=== PATIENT | female | born 1990 | race Caucasian/White ===

== ENCOUNTER 2021-08-01 08:37 | Emergency (ER) | payer MEDICAID, SELFPAY ==
[2021-08-01 08:46] VITALS: BP 115/70; PULSE 78; RESP 16; TEMP 36.4; O2SAT 97; BMI 29.6
--- NOTE | 2021-08-01 09:08 | ED_ITS ---
HPI - URI/Sore Throat General Chief Complaint: Upper Respiratory Symptoms Stated Complaint: flu like symptoms Time Seen by Provider: 08/01/21 09:00 Source: patient Mode of arrival: ambulatory Limitations: no limitations History of Present Illness MD elicited complaint: cough, sore throat and rhinorrhea Onset (ago): day(s) (3) Consistency: constant Severity: mild Description of mucous: clear Able to tolerate fluids by mouth: Yes Exacerbating factors: swallowing Relieving factors: nothing Associated symptoms: rhinorrhea, sore throat, cough and other (itchy eye) Treatments prior to arrival: none Related Data Previous Rx's Medication Instructions Recorded amoxicillin 500 mg capsule 500 mg PO BID 10 Days #20 cap 08/01/21 cetirizine 10 mg capsule 10 mg PO DAILY PRN #30 cap 08/01/21 Allergies Allergy/AdvReac Type Severity Reaction Status Date / Time No Known Allergies Allergy Verified 08/01/21 08:46 [No Known Allergies*] Review of Systems Review of Systems: Constitutional : No Fever, No Chills ENT/Mouth : pos sore throat, pos Rhinorrhea Eyes: No Eye Pain, No Swelling, No Redness, pos itchy eyes Cardiovascular : No Chest Pain, No SOB Respiratory : No Cough, No Sputum, No Wheezing Gastrointestinal : No Nausea, No Vomiting, Genitourinary : No Dysuria, No Urinary Frequency, No Hematuria Neuro : No Dizziness, No Headache PMFSH Past Medical History Attestation statement: The following information was validated with the patient. Medical History No known health problems Social History Social History (Updated 08/01/21 @ 09:22 by Awilda Couch DO) Patient Tobacco Use Status: Current someday Tobacco user Advance Directives: No Patient : No Physical Exam Vital Signs: Vital Signs: Last Vital Signs Temp 97.5 F 08/01/21 08:46 Pulse 78 08/01/21 08:46 Resp 16 08/01/21 08:46 BP 115/70 08/01/21 08:46 Pulse Ox 97 08/01/21 08:46 Body Mass Index 29.6 Appearance: Alert. Oriented X3. No acute distress. Eyes: Pupils equal, round and reactive to light. bilateral watery itchy eyes ENT: mild generalized tonsil swelling no exudates uvula midline Neck: bilateral mild tender cervical LAD CVS: Normal heart rate and rhythm. Pulses normal. Respiratory: No respiratory distress. Breath sounds normal. Abdomen: Soft and nontender. Skin: Skin warm and dry. Normal skin color. Normal skin turgor. Extremities: No lower extremity edema. No calf ttp Neuro: Oriented X 3. No motor deficit. No sensory deficit. MDM - URI/Sore Throat MDM Narrative Medical decision making narrative: 31 yo female with no sig PMH here with 3 days of itchy eyes, scratchy throat, cough - throat appears like tonsillitis though could be allergies, will start on zyrtec and amoxicillin test for COVID Lab Data Labs: Lab Results 08/01/21 Range/Units 09:15 COVID-19 (CANDICE) Negative (Negative) COVID-19 Clin Com See Note Discharge Plan Discharge Clinical Impression: Allergic rhinitis Qualifiers: Allergic rhinitis trigger: unspecified Allergic rhinitis seasonality: unspecified Qualified Code(s): J30.9 - Allergic rhinitis, unspecified Acute tonsillitis Qualifiers: Pharyngitis/tonsillitis etiology: unspecified etiology Qualified Code(s): J03.90 - Acute tonsillitis, unspecified Patient Disposition: Home, Self-Care Instructions: Allergic Rhinitis (ED), Tonsillitis (ED), Allergies (ED) Additional Instructions: return to ED for any worsening symptoms or concerns NEGATIVE FOR COVID Prescriptions: New cetirizine 10 mg capsule 10 mg PO DAILY PRN (Reason: allergy symptoms) Qty: 30 RF: 2 amoxicillin 500 mg capsule 500 mg PO BID 10 Days Qty: 20 RF: 0 Referrals: [facility] [Primary Care Provider] - 2 days (if not better) Stand Alone Forms: Work/School Release Print Language: Bulgarian
[2021-08-01 09:36] LABS: COVID-19 Test Negative (Negative)
== END 2021-08-01 10:05 | disposition home or self-care (01) ==
PROVIDERS: Emergency Provider Emergency Medicine
DX: J30.9 Allergic rhinitis, unspecified (principal); J03.90 Acute tonsillitis, unspecified; R05.9 Cough, unspecified; F17.200 Nicotine dependence, unspecified, uncomplicated; Z20.822 Contact with and (suspected) exposure to COVID-19
CPT/HCPCS: 36415; 87635; 99283

== ENCOUNTER 2021-09-08 13:42 | Emergency (ER) | payer MEDICAID, SELFPAY ==
[2021-09-08 14:23] VITALS: BP 121/77; PULSE 112; RESP 18; TEMP 37.8; O2SAT 98; BMI 24.1
[2021-09-08 15:06] LABS: COVID-19 Test Negative (Negative)
--- NOTE | 2021-09-08 18:44 | ED.FEVER ---
HPI - Fever General Chief Complaint: Nausea/Vomiting/Diarrhea Stated Complaint: vomiting fever Time Seen by Provider: 09/08/21 16:15 Source: patient Mode of arrival: ambulatory Limitations: no limitations History of Present Illness HPI Narrative: 31 y/o female with no significant medical history presents to the ER for evaluation of a few days of subjective fevers, headaches, productive cough with increased phlegm, nausea and a couple episodes of vomiting. She symptoms are worse in the morning. She has some body aches and generally feels unwell. She is eating and drinking normally throughout the day in reports her nausea is only after she is coughing up some of the morning. She is fully vaccinated for COVID-19 and has no known sick contacts. She has no abdominal pain. She has not taken her temperature but feels like she has had a few days of low-grade fevers. Denies any dysuria but reports her urine has been dark. MD elicited complaint: fever, weakness and other (Cough headache) Onset (ago): day(s) (4) Exacerbating factors: in morning Relieving factors: nothing Associated symptoms: headache, nasal congestion, cough, nausea and vomiting Treatments prior to arrival fever: none Related Data Previous Rx's Medication Instructions Recorded amoxicillin 500 mg capsule 500 mg PO BID 10 Days #20 cap 08/01/21 cetirizine 10 mg capsule 10 mg PO DAILY PRN #30 cap 08/01/21 azithromycin 250 mg tablet See Rx Instructions .ROUTE 09/08/21 (Zithromax Z-Shin) .COMPLEX #6 tab ondansetron 4 mg disintegrating 4 mg PO Q8H PRN #5 tab 09/08/21 tablet prednisone 20 mg tablet 40 mg PO DAILY #10 tab 09/08/21 Allergies Allergy/AdvReac Type Severity Reaction Status Date / Time No Known Allergies Allergy Verified 08/01/21 08:46 [No Known Allergies*] Review of Systems Review of Systems: Constitutional: No Fever, No Chills ENT/Mouth: No sore throat, No Rhinorrhea, No Swallowing Difficulty Cardiovascular: No Chest Pain, No SOB, No Orthopnea, No Edema Respiratory: + Cough, + Sputum, No Wheezing, No dyspnea Gastrointestinal: + Nausea, + Vomiting, No Diarrhea, No abdominal Pain Genitourinary: No Dysuria, No Urinary Frequency, No Hematuria Musculoskeletal: No joint pain, No Myalgias Skin: No Skin Lesions, No rash Neuro: + Weakness, No Numbness, No Dizziness, + Headache Heme/Lymph: No Bruising, No Lymphadenopathy PMFSH Past Medical History Medical History No known health problems Social History Social History (Updated 08/01/21 @ 09:22 by Awilda Couch DO) Patient Tobacco Use Status: Current someday Tobacco user Advance Directives: No Advance Directives Information Provided: Yes Physical Exam Vital Signs: Vital Signs: Last Vital Signs Temp 99.8 F 09/08/21 18:48 Pulse 86 09/08/21 18:48 Resp 18 09/08/21 18:48 BP 137/76 09/08/21 18:48 Pulse Ox 98 09/08/21 18:48 BMI result Body Mass Index 24.1 Appearance: Alert. Oriented X3. No acute distress. Eyes: Pupils equal, round and reactive to light. ENT: Pharynx normal. Neck: Normal inspection. Neck supple. CVS: Normal heart rate and rhythm. Pulses normal. Respiratory: No respiratory distress. Breath sounds normal. Abdomen: Soft and nontender. +BS x4 Skin: Skin warm and dry. Normal skin color. Normal skin turgor. No rashes. Extremities: No lower extremity edema. Neuro: Oriented X 3. No motor deficit. No sensory deficit. Course Course Course Narrative: 31-year-old female presenting with multiple vague complaints. She has a low-grade fever with tachycardia on arrival. She appears well, nontoxic. She has acne for COVID-19. She did not get the flu shot this year. Her rapid COVID is negative. Her low-grade fever and tachycardia improved without intervention. Her urine is dark. Will send urinalysis, check basic lab workup and hydrate with IV fluids. Will send a viral PCR as well. Her symptoms seem to be viral in etiology. Reevaluation(s) Reevaluation #1: Lab workup is completely normal. Urinalysis showing blood but knows other signs of infection. Her viral PCR is negative. At this time she is stable for discharge home with supportive care and outpatient follow-up. MDM - Fever Lab Data Result diagrams: 09/08/21 19:12 09/08/21 19:12 Labs: Lab Results 09/08/21 09/08/21 09/08/21 Range/Units 14:47 18:38 18:38 WBC (4.8-10.8) X10*3/uL RBC (4.20-5.50) X10*6/uL Hgb (12.0-16.0) g/dl Hct (37.0-47.0) % MCV (80.0-98.0) fL MCH (27.0-33.0) pg MCHC (31.0-35.0) g/dl RDW (11.0-16.0) % Plt Count (160-400) X10*3/uL MPV (9.4-12.3) fL Immature Gran % (Auto) (0.0-0.4) % Neut % (Auto) (45-73) % Lymph % (Auto) (20-40) % [place] % (Auto) (2-11) % Eos % (Auto) (0-4) % Baso % (Auto) (0-2) % Lymph # (Auto) (1.2-4.9) X10*3/uL [place] # (Auto) (0.1-1.2) X10*3/uL Eos # (Auto) (0.0-0.4) X10*3/uL Baso # (Auto) (0.0-0.2) X10*3/uL Abs Immat Gran (auto) (0.00-0.03) X10*3/uL Absolute Neuts (auto) (2.0-8.3) x10*3/uL Absolute Nucleated RBC (0.0-0.012) X10*3/uL Nucleated RBC % (auto) (0.0-0.2) /100WBC Smear Tech's Comments Sodium (135-145) mmol/L Potassium (3.3-5.1) mmol/L Chloride (96-108) mmol/L Carbon Dioxide (22-29) mmol/L Anion Gap (12-20) BUN (9-16) mg/dL Creatinine (0.5-1.4) mg/dL Estim Creat Clear Calc Estimated GFR Random Glucose (60-115) mg/dL Calcium (8.4-10.2) mg/dL Magnesium (1.6-2.6) mg/dL Total Bilirubin (0.0-1.0) mg/dL Direct Bilirubin (0.0-0.5) mg/dL AST (5-31) U/L ALT (0-31) U/L Alkaline Phosphatase (39-117) U/L Total Protein (6.5-8.0) g/dL Albumin (3.5-5.0) g/dL Urine Color YELLOW Urine Appearance HAZY Urine pH 5.5 (5.0-8.0) Ur Specific Ward >= 1.030 H (1.005-1.025) Urine Protein 3+ H (NEG-TRACE) MG/DL Urine Glucose (UA) NEG (NEG) MG/DL Urine Ketones 5 (NEG) MG/DL Urine Blood 3+ H (NEG) Urine Nitrite NEG (NEG) Ur Leukocyte Esterase NEG (NEG) Urine RBC 15-29 H (0) /HPF Urine WBC 0 (0-4) /HPF Ur Squamous Epith Cells 1+ /LPF Urine Bacteria 1+ /LPF Urine Test NEGATIVE (NEGATIVE) COVID-19 (CANDICE) Negative (Negative) COVID-19 Clin Com See Note Influenza Type A (PCR) (Negative) Influenza Type B (PCR) (Negative) RSV RNA Qual (PCR) (Negative) SARS-CoV-2 RNA (RT-PCR) (Negative) 09/08/21 09/08/21 09/08/21 Range/Units 19:12 19:12 19:12 WBC 8.8 (4.8-10.8) X10*3/uL RBC 4.68 (4.20-5.50) X10*6/uL Hgb 14.2 (12.0-16.0) g/dl Hct 43.6 (37.0-47.0) % MCV 93.2 (80.0-98.0) fL MCH 30.3 (27.0-33.0) pg MCHC 32.6 (31.0-35.0) g/dl RDW 13.3 (11.0-16.0) % Plt Count 252 (160-400) X10*3/uL MPV 10.4 (9.4-12.3) fL Immature Gran % (Auto) 0.5 H (0.0-0.4) % Neut % (Auto) 58.3 (45-73) % Lymph % (Auto) 21.5 (20-40) % [place] % (Auto) 18.9 H (2-11) % Eos % (Auto) 0.6 (0-4) % Baso % (Auto) 0.2 (0-2) % Lymph # (Auto) 1.9 (1.2-4.9) X10*3/uL [place] # (Auto) 1.7 H (0.1-1.2) X10*3/uL Eos # (Auto) 0.1 (0.0-0.4) X10*3/uL Baso # (Auto) 0.0 (0.0-0.2) X10*3/uL Abs Immat Gran (auto) 0.04 H (0.00-0.03) X10*3/uL Absolute Neuts (auto) 5.1 (2.0-8.3) x10*3/uL Absolute Nucleated RBC 0.000 (0.0-0.012) X10*3/uL Nucleated RBC % (auto) 0.0 (0.0-0.2) /100WBC Smear Tech's Comments VERIFIED Sodium 138 (135-145) mmol/L Potassium 4.1 (3.3-5.1) mmol/L Chloride 105 (96-108) mmol/L Carbon Dioxide 25 (22-29) mmol/L Anion Gap 12 (12-20) BUN 16 (9-16) mg/dL Creatinine 0.83 (0.5-1.4) mg/dL Estim Creat Clear Calc 78.4 Estimated GFR > 60 Random Glucose 88 (60-115) mg/dL Calcium 9.5 (8.4-10.2) mg/dL Magnesium 2.0 (1.6-2.6) mg/dL Total Bilirubin 0.2 (0.0-1.0) mg/dL Direct Bilirubin < 0.2 (0.0-0.5) mg/dL AST 19 (5-31) U/L ALT 13 (0-31) U/L Alkaline Phosphatase 54 (39-117) U/L Total Protein 7.7 (6.5-8.0) g/dL Albumin 4.0 (3.5-5.0) g/dL Urine Color Urine Appearance Urine pH (5.0-8.0) Ur Specific Ward (1.005-1.025) Urine Protein (NEG-TRACE) MG/DL Urine Glucose (UA) (NEG) MG/DL Urine Ketones (NEG) MG/DL Urine Blood (NEG) Urine Nitrite (NEG) Ur Leukocyte Esterase (NEG) Urine RBC (0) /HPF Urine WBC (0-4) /HPF Ur Squamous Epith Cells /LPF Urine Bacteria /LPF Urine Test (NEGATIVE) COVID-19 (CANDICE) (Negative) COVID-19 Clin Com Influenza Type A (PCR) NEGATIVE (Negative) Influenza Type B (PCR) NEGATIVE (Negative) RSV RNA Qual (PCR) NEGATIVE (Negative) SARS-CoV-2 RNA (RT-PCR) NEGATIVE (Negative) Discharge Plan Discharge Clinical Impression: Bronchitis Patient Disposition: Home, Self-Care Instructions: Acute Bronchitis (ED) Additional Instructions: You were negative for COVID-19, influenza and RSV. Your lab workup was normal. Your urine test did not show any signs of infection. Your being treated for acute bronchitis, take all the prescriptions as directed. Increase your oral hydration and rest. Follow-up with your doctor as needed If you develop new or worsening symptoms call 911 or come back to the ER for further evaluation. Prescriptions: New azithromycin [Zithromax Z-Sihn] 250 mg tablet See Rx Instructions .ROUTE .COMPLEX Qty: 6 RF: 0 prednisone 20 mg tablet 40 mg PO DAILY Qty: 10 RF: 0 ondansetron 4 mg tablet,disintegrating 4 mg PO Q8H PRN (Reason: nausea and vomiting) Qty: 5 RF: 0 No Action cetirizine 10 mg capsule 10 mg PO DAILY PRN (Reason: allergy symptoms) Qty: 30 RF: 2 amoxicillin 500 mg capsule 500 mg PO BID 10 Days Qty: 20 RF: 0 Interventions: ED Discharge Assessment Last Done: 09/08/21 20:37
[2021-09-08 18:45] LABS: Appearance Urine HAZY; Color Urine YELLOW; Glucose Urine UA NEG (NEG); Leukocyte Esterase Urine NEG (NEG); Nitrite Urine NEG (NEG); PH 5.5 (5.0-8.0); Specific Gravity - Urine >= 1.030 (1.005-1.025); UACC Culture Trigger NO; Urine Blood 3+ (NEG); Urine Ketones 5 MG/DL (NEG); Urine Protein 3+ MG/DL (NEG-TRACE)
[2021-09-08 18:47] LABS: UPreg QC Valid YES; Urine Pregnancy NEGATIVE (NEGATIVE)
[2021-09-08 18:48] VITALS: BP 137/76; PULSE 86; RESP 18; TEMP 37.7; O2SAT 98
[2021-09-08 18:52] LABS: Bacteria Urine 1+ /LPF; Squamous Epithelial Cell Urine 1+ /LPF; WBC Urine 0 /HPF (0-4)
[2021-09-08] MEDS: 0.9 % Sodium Chloride 1,000 ML 999 ML IVCONT (19:15)
[2021-09-08 19:17] LABS: Basophils Percent Auto 0.2 % (0-2); Eosinophils Absolute Auto 0.1 X10*3/uL (0.0-0.4); Eosinophils Percent Auto 0.6 % (0-4); Hematocrit 43.6 % (37.0-47.0); Hemoglobin 14.2 g/dl (12.0-16.0); Imm Gran Abs Auto 0.04 X10*3/uL (0.00-0.03); Imm Gran Pct Auto 0.5 % (0.0-0.4); Lymphocytes Absolute Auto 1.9 X10*3/uL (1.2-4.9); Lymphocytes Percent Auto 21.5 % (20-40); MANUAL DIFF FLAG SCAN; Mean Corpuscular HGB Conc 32.6 g/dl (31.0-35.0); Mean Corpuscular Hemoglobin 30.3 pg (27.0-33.0); Mean Corpuscular Volume 93.2 fL (80.0-98.0); Mean Platelet Volume 10.4 fL (9.4-12.3); Monocytes Absolute Auto 1.7 X10*3/uL (0.1-1.2); Monocytes Percent Auto 18.9 % (2-11); Neutrophils Absolute Auto 5.1 x10*3/uL (2.0-8.3); Neutrophils Percent Auto 58.3 % (45-73); Platelet Count 252 X10*3/uL (160-400); Red Blood Count 4.68 X10*6/uL (4.20-5.50); Red Cell Distribution Width 13.3 % (11.0-16.0); SCAN SMEAR FLAG 1; White Blood Count 8.8 X10*3/uL (4.8-10.8)
[2021-09-08 19:39] LABS: Alanine Aminotransferase 13 U/L (0-31); Alkaline Phosphatase 54 U/L (39-117); Anion Gap 12 (12-20); Aspartate Amino Transferase 19 U/L (5-31); Bilirubin Direct < 0.2 mg/dL (0.0-0.5); Bilirubin Total 0.2 mg/dL (0.0-1.0); Blood Urea Nitrogen 16 mg/dL (9-16); Calcium 9.5 mg/dL (8.4-10.2); Carbon Dioxide 25 mmol/L (22-29); Chloride 105 mmol/L (96-108); Creatinine Clr Calc Pharmacy 78.4; Estimated Glomerular Filt Rate > 60; Glucose Random 88 mg/dL (60-115); Potassium 4.1 mmol/L (3.3-5.1); Sodium 138 mmol/L (135-145); Total Protein 7.7 g/dL (6.5-8.0)
[2021-09-08 19:53] LABS: Influenza A PCR NEGATIVE (Negative); Influenza B PCR NEGATIVE (Negative); Resp Syncy Virus RNA Qual PCR NEGATIVE (Negative); SARS COV2 PCR INHOUSE NEGATIVE (Negative)
[2021-09-08 19:55] LABS: SLIDE REVIEW VERIFIED
== END 2021-09-08 20:45 | disposition home or self-care (01) ==
PROVIDERS: Physician Assistant; Emergency Provider Emergency Medicine
DX: J40 Bronchitis, not specified as acute or chronic (principal); Z20.822 Contact with and (suspected) exposure to COVID-19
CPT/HCPCS: 0241U; 36415; 80048; 80076; 81001; 81025; 83735; 85025; 87635; 96360; 99284

== ENCOUNTER 2021-12-17 10:48 | Emergency (ER) | payer MEDICAID, SELFPAY ==
--- NOTE | ~2021-12-17 | CT_ITS ---
EXAMINATION: CT ABDOMEN AND PELVIS WITHOUT CONTRAST CLINICAL INFORMATION: Urinary retention. Rule out kidney stone. COMPARISON: None TECHNIQUE: Multidetector volumetric imaging was performed from the superior aspect of the liver through the pubic symphysis. Sagittal and coronal reformatted images were obtained on the technologist's workstation. This CT examination was performed using dose optimization techniques as appropriate, variously including the following: *Automated exposure control *Adjustment of mA and/or kV according to patient size (this includes techniques or standardized protocols for targeted exams where dose is matched to indication/reason for exam; i.e. extremities or head) *Use of iterative reconstruction technique DLP: 594 mGy-cm FINDINGS: Exam is limited due to motion artifact. LUNG BASES: The visualized lung bases are unremarkable. LIVER, GALLBLADDER, AND BILIARY TREE: The liver is normal in size, shape, and attenuation. No focal hepatic lesion or biliary ductal dilatation is present. The gallbladder is unremarkable with no evidence of radiopaque gallstones, gallbladder wall thickening, or obvious pericholecystic inflammatory changes. PANCREAS: Unremarkable. SPLEEN: Unremarkable. ADRENAL GLANDS: Unremarkable. KIDNEYS AND URETERS: The kidneys are normal in size, shape, and attenuation. No hydronephrosis, hydroureter, or calculi seen. No perinephric stranding. BLADDER: The bladder is empty. GASTROINTESTINAL TRACT: The small and large bowel are unremarkable. The appendix is unremarkable. ABDOMINAL WALL: No significant hernia is appreciated. LYMPH NODES: Normal. VASCULAR: Unremarkable. PELVIC VISCERA: Unremarkable. OSSEOUS STRUCTURES: Unremarkable. CT/CT abdomen pelvis wo con IMPRESSION: Limited exam due to motion artifact. No stone or hydronephrosis seen. Fleischner guidelines were followed.
[2021-12-17 11:03] VITALS: BP 120/68; PULSE 80; RESP 16; TEMP 36.3; O2SAT 98; BMI 28.7
[2021-12-17 12:14] LABS: Appearance Urine HAZY; Color Urine YELLOW; Glucose Urine UA NEG (NEG); Leukocyte Esterase Urine NEG (NEG); Nitrite Urine NEG (NEG); PH 6.5 (5.0-8.0); UACC Culture Trigger NO; Urine Blood 3+ (NEG); Urine Ketones NEG (NEG); Urine Protein 1+ MG/DL (NEG-TRACE)
[2021-12-17 12:18] LABS: UPreg QC Valid YES; Urine Pregnancy NEGATIVE (NEGATIVE)
--- NOTE | 2021-12-17 12:22 | ED_ITS ---
HPI - Female Genitourinary General Chief complaint: Urogenital-Female Stated complaint: pain when urinating Time Seen by Provider: 12/17/21 12:21 History of Present Illness HPI Narrative: Patient complains of feeling increasing pressure in her bladder yesterday accompanied by an inability to urinate since yesterday around 04:00 o'clock and comes now feeling lots of bladder pressure and discomfort Denies fever vomiting or any other abdominal pain Related Data Previous Rx's Medication Instructions Recorded amoxicillin 500 mg capsule 500 mg PO BID 10 Days #20 cap 08/01/21 cetirizine 10 mg capsule 10 mg PO DAILY PRN #30 cap 08/01/21 azithromycin 250 mg tablet See Rx Instructions .ROUTE 09/08/21 (Zithromax Z-Shin) .COMPLEX #6 tab ondansetron 4 mg disintegrating 4 mg PO Q8H PRN #5 tab 09/08/21 tablet prednisone 20 mg tablet 40 mg PO DAILY #10 tab 09/08/21 nitrofurantoin 100 mg PO Q12H 5 Days #10 cap 12/17/21 monohydrate/macrocrystals 100 mg capsule (Macrobid) Allergies Allergy/AdvReac Type Severity Reaction Status Date / Time No Known Allergies Allergy Verified 08/01/21 08:46 [No Known Allergies*] Review of Systems Review of Systems: Positive for urinary retention for 1 day Negatives are no fever no chills no dizziness no nausea no vomiting no chest pain no diarrhea no vaginal discharge no rash Yes all other systems are reviewed and are negative PMFSH Past Medical History Source: nursing notes reviewed Medical History No known health problems Social History Social History (Updated 08/01/21 @ 09:22 by Awilda Couch DO) Patient Tobacco Use Status: Current someday Tobacco user Advance Directives: No Advance Directives Information Provided: Yes Physical Exam Vital Signs: Vital Signs: Last Vital Signs Temp 97.6 F 12/17/21 13:55 Pulse 80 12/17/21 13:55 Resp 16 12/17/21 13:55 BP 122/70 12/17/21 13:55 Pulse Ox 98 12/17/21 13:55 BMI result Body Mass Index 28.7 General appearance is uncomfortable but no acute distress Eyes anicteric no pallor Mucous membranes are moist Neck is supple Chest clear to auscultation bilateral The abdomen had some tenderness over the bladder but was otherwise nontender without rebound or guarding The back no CVA tenderness Genital exam was deferred Extremities no edema no calf tenderness or swelling Neuro no focal deficits Course Course Course Narrative: Bladder scan showed over 500 cc of urine so Novak was placed and drained over 700 cc of urine with complete relief of discomfort CT scan was done which did not show any obstructive abnormality no kidney stone no explanation for urinary retention UA showed only blood in the urine and the patient is on her menstruation Other labs were not diagnostic Patient denies any medication or drugs she is not using any supplements, her last bowel movement was normal she is not constipated The case was discussed with attending physician Iza who agreed patient could be discharged and if she is unable to urinate she will return for of Novak catheter She was treated with Macrobid for the red cells for possible hemorrhagic cystitis although it is likely that the blood is from her menstruation She is asymptomatic and without any discomfort on discharge MDM - Female Genitourinary Lab Data Attestation: I reviewed the patient's lab results. Result diagrams: 12/17/21 12:51 12/17/21 12:51 Labs: Lab Results 12/17/21 12/17/21 12/17/21 Range/Units 12:05 12:05 12:51 WBC 6.2 (4.8-10.8) X10*3/uL RBC 4.48 (4.20-5.50) X10*6/uL Hgb 13.6 (12.0-16.0) g/dl Hct 41.5 (37.0-47.0) % MCV 92.6 (80.0-98.0) fL MCH 30.4 (27.0-33.0) pg MCHC 32.8 (31.0-35.0) g/dl RDW 12.9 (11.0-16.0) % Plt Count 269 (160-400) X10*3/uL MPV 10.3 (9.4-12.3) fL Immature Gran % (Auto) 0.2 (0.0-0.4) % Neut % (Auto) 46.5 (45-73) % Lymph % (Auto) 34.3 (20-40) % [place] % (Auto) 15.6 H (2-11) % Eos % (Auto) 2.9 (0-4) % Baso % (Auto) 0.5 (0-2) % Lymph # (Auto) 2.1 (1.2-4.9) X10*3/uL [place] # (Auto) 1.0 (0.1-1.2) X10*3/uL Eos # (Auto) 0.2 (0.0-0.4) X10*3/uL Baso # (Auto) 0.0 (0.0-0.2) X10*3/uL Abs Immat Gran (auto) 0.01 (0.00-0.03) X10*3/uL Absolute Neuts (auto) 2.9 (2.0-8.3) x10*3/uL Absolute Nucleated RBC 0.000 (0.0-0.012) X10*3/uL Nucleated RBC % (auto) 0.0 (0.0-0.2) /100WBC Sodium (135-145) mmol/L Potassium (3.3-5.1) mmol/L Chloride (96-108) mmol/L Carbon Dioxide (22-29) mmol/L Anion Gap (12-20) BUN (9-16) mg/dL Creatinine (0.5-1.4) mg/dL Estim Creat Clear Calc Estimated GFR Random Glucose (60-115) mg/dL Calcium (8.4-10.2) mg/dL Urine Color YELLOW Urine Appearance HAZY Urine pH 6.5 (5.0-8.0) Ur Specific [place] 1.020 (1.005-1.025) Urine Protein 1+ H (NEG-TRACE) MG/DL Urine Glucose (UA) NEG (NEG) MG/DL Urine Ketones NEG (NEG) MG/DL Urine Blood 3+ H (NEG) Urine Nitrite NEG (NEG) Ur Leukocyte Esterase NEG (NEG) Urine RBC 15-29 H (0) /HPF Urine WBC 0 (0-4) /HPF Ur Squamous Epith Cells 1+ /LPF Urine Bacteria NONE /LPF Urine Mucus 1+ /LPF Urine Test NEGATIVE (NEGATIVE) 12/17/21 Range/Units 12:51 WBC (4.8-10.8) X10*3/uL RBC (4.20-5.50) X10*6/uL Hgb (12.0-16.0) g/dl Hct (37.0-47.0) % MCV (80.0-98.0) fL MCH (27.0-33.0) pg MCHC (31.0-35.0) g/dl RDW (11.0-16.0) % Plt Count (160-400) X10*3/uL MPV (9.4-12.3) fL Immature Gran % (Auto) (0.0-0.4) % Neut % (Auto) (45-73) % Lymph % (Auto) (20-40) % [place] % (Auto) (2-11) % Eos % (Auto) (0-4) % Baso % (Auto) (0-2) % Lymph # (Auto) (1.2-4.9) X10*3/uL [place] # (Auto) (0.1-1.2) X10*3/uL Eos # (Auto) (0.0-0.4) X10*3/uL Baso # (Auto) (0.0-0.2) X10*3/uL Abs Immat Gran (auto) (0.00-0.03) X10*3/uL Absolute Neuts (auto) (2.0-8.3) x10*3/uL Absolute Nucleated RBC (0.0-0.012) X10*3/uL Nucleated RBC % (auto) (0.0-0.2) /100WBC Sodium 139 (135-145) mmol/L Potassium 4.2 (3.3-5.1) mmol/L Chloride 105 (96-108) mmol/L Carbon Dioxide 29 (22-29) mmol/L Anion Gap 9 L (12-20) BUN 11 (9-16) mg/dL Creatinine 0.76 (0.5-1.4) mg/dL Estim Creat Clear Calc 100.0 Estimated GFR > 60 Random Glucose 80 (60-115) mg/dL Calcium 9.6 (8.4-10.2) mg/dL Urine Color Urine Appearance Urine pH (5.0-8.0) Ur Specific [place] (1.005-1.025) Urine Protein (NEG-TRACE) MG/DL Urine Glucose (UA) (NEG) MG/DL Urine Ketones (NEG) MG/DL Urine Blood (NEG) Urine Nitrite (NEG) Ur Leukocyte Esterase (NEG) Urine RBC (0) /HPF Urine WBC (0-4) /HPF Ur Squamous Epith Cells /LPF Urine Bacteria /LPF Urine Mucus /LPF Urine Test (NEGATIVE) Discharge Plan Discharge Clinical Impression: Acute urinary retention Patient Disposition: Home, Self-Care Additional Instructions: Our workup today did not explain why you were unable to urinate your kidney function was normal, CT scan did not show any blockage, you are not , and urine test did not clearly show an infection There was blood in your urine which is likely from your. But in some cases blood can be from a urine infection so we will try an antibiotic to cover the possibility of urinary tract infection Return if you are unable to urinate or experience abdominal pain or back pain or fever or any worse condition or any concerns If urine is blocked again we will need to place a catheter and do further evaluation Prescriptions: New nitrofurantoin monohyd/m-cryst [Macrobid] 100 mg capsule 100 mg PO Q12H 5 Days Qty: 10 0RF Rx Instructions: must administer with a meal/food No Action cetirizine 10 mg capsule 10 mg PO DAILY PRN (Reason: allergy symptoms) Qty: 30 2RF amoxicillin 500 mg capsule 500 mg PO BID 10 Days Qty: 20 0RF azithromycin [Zithromax Z-Shin] 250 mg tablet See Rx Instructions .ROUTE .COMPLEX Qty: 6 0RF Rx Instructions: take 500 mg today (day 1), then 250 mg for 4 days (days 2-5) prednisone 20 mg tablet 40 mg PO DAILY Qty: 10 0RF ondansetron 4 mg tablet,disintegrating 4 mg PO Q8H PRN (Reason: nausea and vomiting) Qty: 5 0RF Interventions: ED Discharge Assessment Last Done: 12/17/21 13:57 Discharge Date/Time: 12/17/21 13:58
[2021-12-17 12:55] LABS: MANUAL DIFF FLAG NO
[2021-12-17 12:56] LABS: Basophils Percent Auto 0.5 % (0-2); Eosinophils Absolute Auto 0.2 X10*3/uL (0.0-0.4); Eosinophils Percent Auto 2.9 % (0-4); Hematocrit 41.5 % (37.0-47.0); Hemoglobin 13.6 g/dl (12.0-16.0); Imm Gran Abs Auto 0.01 X10*3/uL (0.00-0.03); Imm Gran Pct Auto 0.2 % (0.0-0.4); Lymphocytes Absolute Auto 2.1 X10*3/uL (1.2-4.9); Lymphocytes Percent Auto 34.3 % (20-40); Mean Corpuscular HGB Conc 32.8 g/dl (31.0-35.0); Mean Corpuscular Hemoglobin 30.4 pg (27.0-33.0); Mean Corpuscular Volume 92.6 fL (80.0-98.0); Mean Platelet Volume 10.3 fL (9.4-12.3); Monocytes Percent Auto 15.6 % (2-11); Neutrophils Absolute Auto 2.9 x10*3/uL (2.0-8.3); Neutrophils Percent Auto 46.5 % (45-73); Platelet Count 269 X10*3/uL (160-400); Red Blood Count 4.48 X10*6/uL (4.20-5.50); Red Cell Distribution Width 12.9 % (11.0-16.0); White Blood Count 6.2 X10*3/uL (4.8-10.8)
[2021-12-17 13:17] LABS: Mucus Urine 1+ /LPF; Squamous Epithelial Cell Urine 1+ /LPF; WBC Urine 0 /HPF (0-4)
[2021-12-17 13:19] LABS: Anion Gap 9 (12-20); Blood Urea Nitrogen 11 mg/dL (9-16); Calcium 9.6 mg/dL (8.4-10.2); Carbon Dioxide 29 mmol/L (22-29); Chloride 105 mmol/L (96-108); Estimated Glomerular Filt Rate > 60; Glucose Random 80 mg/dL (60-115); Potassium 4.2 mmol/L (3.3-5.1); Sodium 139 mmol/L (135-145)
[2021-12-17] MEDS: Nitrofurantoin Monohyd/M-Cryst 100 MG CAPSULE PO (13:53)
[2021-12-17 13:55] VITALS: BP 122/70; PULSE 80; RESP 16; TEMP 36.4; O2SAT 98
--- NOTE | 2021-12-17 13:55 | PC.NURSE ---
ALONDRA MICHAEL UPDATED PATIENT ON RESULTS OF CT SCAN AND DISPO. PT AWRAE AND AGREEABLE TO PLAN. STATES NO QUESTIONS. AMBULATORY OUT OF ER, GAIT STEADY. MEDICATED ORDERED
== END 2021-12-17 13:58 | disposition home or self-care (01) ==
PROVIDERS: Physician Assistant Medical; Emergency Provider Emergency Medicine
DX: R33.9 Retention of urine, unspecified (principal); F17.200 Nicotine dependence, unspecified, uncomplicated
CPT/HCPCS: 36415; 74176; 80048; 81001; 81025; 85025; 99284

== ENCOUNTER 2021-12-20 10:36 | Emergency (ER) | payer MEDICAID, SELFPAY ==
[2021-12-20 10:47] VITALS: BP 127/71; PULSE 73; RESP 16; TEMP 36.6; O2SAT 100; BMI 28.7
[2021-12-20 12:08] LABS: UPreg QC Valid YES; Urine Pregnancy NEGATIVE (NEGATIVE)
[2021-12-20 12:09] LABS: Appearance Urine HAZY; Color Urine YELLOW; Glucose Urine UA NEG (NEG); Leukocyte Esterase Urine 2+ (NEG); Nitrite Urine NEG (NEG); PH 6.5 (5.0-8.0); Specific Gravity - Urine 1.025 (1.005-1.025); UACC Culture Trigger YES; Urine Blood 2+ (NEG); Urine Ketones NEG (NEG); Urine Protein 1+ MG/DL (NEG-TRACE)
[2021-12-20 12:33] LABS: Bacteria Urine TRACE /LPF; Hyaline Casts Urine 0-2 /LPF; Squamous Epithelial Cell Urine 3+ /LPF
--- NOTE | 2021-12-20 13:14 | ED_ITS ---
HPI - Female Genitourinary General Chief complaint: Urogenital-Female Stated complaint: UNABLE TO URINATE Time Seen by Provider: 12/20/21 10:45 Source: patient Mode of arrival: ambulatory Limitations: no limitations History of Present Illness HPI Narrative: Patient comes to the emergency room complaining of UTI symptoms. Patient has frequency, dysuria, denies hematuria fever chills, no flank pain, symptoms have been present for more than 3 days now. Patient had a urinalysis test 3 days ago which was negative for UTI. Related Data Previous Rx's Medication Instructions Recorded amoxicillin 500 mg capsule 500 mg PO BID 10 Days #20 cap 08/01/21 cetirizine 10 mg capsule 10 mg PO DAILY PRN #30 cap 08/01/21 azithromycin 250 mg tablet See Rx Instructions .ROUTE 09/08/21 (Zithromax Z-Shin) .COMPLEX #6 tab ondansetron 4 mg disintegrating 4 mg PO Q8H PRN #5 tab 09/08/21 tablet prednisone 20 mg tablet 40 mg PO DAILY #10 tab 09/08/21 nitrofurantoin 100 mg PO Q12H 5 Days #10 cap 12/17/21 monohydrate/macrocrystals 100 mg capsule (Macrobid) phenazopyridine 100 mg tablet 100 mg PO TID #6 tab 12/20/21 sulfamethoxazole 800 1 tab PO BID #6 tab 12/20/21 mg-trimethoprim 160 mg tablet (Bactrim DS) Allergies Allergy/AdvReac Type Severity Reaction Status Date / Time No Known Allergies Allergy Verified 08/01/21 08:46 [No Known Allergies*] Review of Systems Review of Systems: Constitutional : No Weight loss, No Fever, No Chills, No Night Sweats, No Fatigue, No Malaise ENT/Mouth : No Hearing loss, No Ear Pain, No Nasal Congestion, No Sinus Pain, No Hoarseness, No sore throat, No Rhinorrhea, No Swallowing Difficulty Eyes: No Eye Pain, No Swelling, No Redness, No Foreign Body, No Discharge, No Vision Changes Cardiovascular : No Chest Pain, No SOB, No Dyspnea on Exertion, No Orthopnea, No Edema, No Palpitations Respiratory : No Cough, No Sputum, No Wheezing, No Smoke Exposure, No Dyspnea Gastrointestinal : No Nausea, No Vomiting, No Diarrhea, No Constipation, No abdominal Pain, No Hematochezia, No Melena Genitourinary : no irregular bleeding, complaining of dysuria and urinary frequency, No Hematuria, No Urinary Incontinence, complaining of Urgency, No Flank Pain Musculoskeletal : No joint pain, No Myalgias, No Joint Swelling Skin : No Skin Lesions, No rash Neuro : No Weakness, No Numbness, No Paresthesias, No Loss of Consciousness, No Dizziness, No Headache Psych : No Anxiety/Panic, No Depression, No SI/HI/AH/VH, No Social Issues, Heme/Lymph: No Bruising, No Bleeding,No Lymphadenopathy Endocrine : No Polyuria, No Polydipsia, No Temperature Intolerance [facility] Past Medical History Medical History No known health problems Social History Social History (Updated 08/01/21 @ 09:22 by Awilda Couch DO) Patient Tobacco Use Status: Current someday Tobacco user Advance Directives: No Advance Directives Information Provided: Yes Physical Exam Vital Signs: Vital Signs: Last Vital Signs Temp 97.9 F 12/20/21 10:47 Pulse 73 12/20/21 10:47 Resp 16 12/20/21 10:47 BP 127/71 12/20/21 10:47 Pulse Ox 100 12/20/21 10:47 BMI result Body Mass Index 28.7 Const: Other: Appearance: Alert. Oriented X3. No acute distress. Eyes: Pupils equal, round and reactive to light. ENT: Pharynx normal. Neck: Normal inspection. Neck supple. No lymph nodes noted. No crepitus CVS: Normal heart rate and rhythm. Pulses normal. Normal S1 and S2 Respiratory: No respiratory distress. Breath sounds normal. No Wheezing. No rales Abdomen: Soft and nontender. No rigidity. No distention. Back: Negative CVA tenderness Skin: Skin warm and dry. Normal skin color. Normal skin turgor. Extremities: No lower extremity edema. No Lacerations. No Rash Neuro: Oriented X 3. No motor deficit. No sensory deficit. Moving all extremities. No slurred speech. CN 2 through 12 grossly intact Psych: calm, cooperative, normal affect Course Course Course Narrative: Patient has no fever, no chills, normal vital signs, no flank pain. Pyelonephritis and sepsis are not suspected. MDM - Female Genitourinary Lab Data Labs: Lab Results 12/20/21 12/20/21 Range/Units 11:53 11:53 Urine Color YELLOW Urine Appearance HAZY Urine pH 6.5 (5.0-8.0) Ur Specific [place] 1.025 (1.005-1.025) Urine Protein 1+ H (NEG-TRACE) MG/DL Urine Glucose (UA) NEG (NEG) MG/DL Urine Ketones NEG (NEG) MG/DL Urine Blood 2+ H (NEG) Urine Nitrite NEG (NEG) Ur Leukocyte Esterase 2+ H (NEG) Urine RBC 5-9 H (0) /HPF Urine WBC 10-14 H (0-4) /HPF Ur Squamous Epith Cells 3+ /LPF Urine Bacteria TRACE /LPF Hyaline Casts 0-2 /LPF Urine Test NEGATIVE (NEGATIVE) Discharge Plan Discharge Clinical Impression: Urinary tract infection Patient Disposition: Home, Self-Care Instructions: Urinary Tract Infection in Women (DC) Additional Instructions: Please follow-up with your primary care physician tomorrow. If you have any worsening or new symptoms, please return to the emergency room or call 911 Prescriptions: New sulfamethoxazole-trimethoprim [Bactrim DS] 800-160 mg tablet 1 tab PO BID Qty: 6 0RF phenazopyridine 100 mg tablet 100 mg PO TID Qty: 6 0RF No Action cetirizine 10 mg capsule 10 mg PO DAILY PRN (Reason: allergy symptoms) Qty: 30 2RF amoxicillin 500 mg capsule 500 mg PO BID 10 Days Qty: 20 0RF azithromycin [Zithromax Z-Shin] 250 mg tablet See Rx Instructions .ROUTE .COMPLEX Qty: 6 0RF Rx Instructions: take 500 mg today (day 1), then 250 mg for 4 days (days 2-5) prednisone 20 mg tablet 40 mg PO DAILY Qty: 10 0RF ondansetron 4 mg tablet,disintegrating 4 mg PO Q8H PRN (Reason: nausea and vomiting) Qty: 5 0RF nitrofurantoin monohyd/m-cryst [Macrobid] 100 mg capsule 100 mg PO Q12H 5 Days Qty: 10 0RF Rx Instructions: must administer with a meal/food
[2021-12-20 13:29] VITALS: BP 116/72; PULSE 57; TEMP 36.8; O2SAT 99
== END 2021-12-20 13:36 | disposition home or self-care (01) ==
PROVIDERS: Emergency Medicine; Emergency Provider Emergency Medicine
DX: N39.0 Urinary tract infection, site not specified (principal); F17.200 Nicotine dependence, unspecified, uncomplicated
CPT/HCPCS: 81001; 81003; 81025; 87086; 99283

== ENCOUNTER 2022-12-13 15:53 | Emergency (ER) | payer MEDICAID, SELFPAY ==
[2022-12-13 16:02] VITALS: BP 120/78; PULSE 79; RESP 18; TEMP 36.6; O2SAT 98; BMI 29.8
--- NOTE | 2022-12-13 16:02 | ED.DENTAL ---
HPI - Dental/Oral General Chief complaint: General Medical <ALONDRA Coronel - Last Filed: 12/13/22 16:04> Stated complaint: Dental issues <ALONDRA Coronel - Last Filed: 12/13/22 16:04> Time Seen by Provider: 12/13/22 16:55 <ALONDRA Coronel - Last Filed: 12/13/22 16:04> Source: patient and family <ALONDRA Luna - Last Filed: 12/13/22 19:14> Mode of arrival: ambulatory <ALONDRA Luna Last Filed: 12/13/22 19:14> Limitations: language barrier (Montenegrin-speaking) <ALONDRA Luna - Last Filed: 12/13/22 19:14> History of Present Illness HPI Narrative: 32yoF with No Sig PMHx who is presenting to the ER with complaints of painful vesicles to her left upper lip and middle aspect of her lower lip that started over the past few days. Reports that she does have a boyfriend that she was sexually active with approximately 2-3 days ago and she did perform oral intercourse although she does not believe he has any of these same vesicles. She also reports that she had an after alliance party over the weekend where she invited multiple people to her house and she was sharing drinks although she is unaware of anyone around her that had similar symptoms or rash. She reports she has never had this in the past. She denies any fevers, sore throat, trouble swallowing or breathing, cough, nausea/vomiting, chest pain or shortness of breath, dysuria, hematuria, abnormal vaginal discharge, rashes to the vaginal area and she did not believe that she had any STDs or any other symptoms complaints or concerns at this time. <ALONDRA Luna - Last Filed: 12/13/22 19:14> Related Data Home medications: Previous Rx's Medication Instructions Recorded amoxicillin 500 mg capsule 500 mg PO BID 10 days #20 caps 08/01/21 cetirizine 10 mg capsule 10 mg PO DAILY PRN allergy 08/01/21 symptoms #30 caps azithromycin 250 mg tablet See Rx Instructions PO .COMPLEX #6 09/08/21 (Zithromax Z-Shin) tabs ondansetron 4 mg disintegrating 4 mg PO Q8H PRN nausea and 09/08/21 tablet vomiting #5 tabs prednisone 20 mg tablet 40 mg PO DAILY #10 tabs 09/08/21 nitrofurantoin 100 mg PO Q12H 5 days #10 caps 12/17/21 monohydrate/macrocrystals 100 mg capsule (Macrobid) phenazopyridine 100 mg tablet 100 mg PO TID 6 doses #6 tabs 12/20/21 sulfamethoxazole 800 1 tab PO BID #6 tabs 12/20/21 mg-trimethoprim 160 mg tablet (Bactrim DS) doxycycline monohydrate 100 mg 100 mg PO BID 10 days #20 tabs 12/13/22 tablet valacyclovir 1 gram tablet 1,000 mg PO BID Oral herpes 12/13/22 (Valtrex) simplex 10 days #20 tabs <ALONDRA Coronel - Last Filed: 12/13/22 16:04> Allergies/adverse reactions: Allergies Allergy/AdvReac Type Severity Reaction Status Date / Time No Known Allergies Allergy Verified 08/01/21 08:46 [No Known Allergies*] <ALONDRA Coronel - Last Filed: 12/13/22 16:04> Review of Systems Review of Systems: Constitutional : No Weight loss, No Fever, No Chills, No Night Sweats, No Fatigue, No Malaise ENT/Mouth : No Hearing loss, No Ear Pain, No Nasal Congestion, No Sinus Pain, No Hoarseness, No sore throat, No Rhinorrhea, No Swallowing Difficulty Eyes: No Eye Pain, No Swelling, No Redness, No Foreign Body, No Discharge, No Vision Changes Cardiovascular : No Chest Pain, No SOB, No Dyspnea on Exertion, No Orthopnea, No Edema, No Palpitations Respiratory : No Cough, No Sputum, No Wheezing, No Smoke Exposure, No Dyspnea Gastrointestinal : No Nausea, No Vomiting, No Diarrhea, No Constipation, No abdominal Pain, No Hematochezia, No Melena Genitourinary : no irregular bleeding, No Dysuria, No Urinary Frequency, No Hematuria, No Urinary Incontinence, No Urgency, No Flank Pain, No Urinary Flow Changes, No Hesitancy Musculoskeletal : No joint pain, No Myalgias, No Joint Swelling Skin : + painful rash/vesicles to left upper and lower lip, No Skin Lesions, No additional rash Neuro : No Weakness, No Numbness, No Paresthesias, No Loss of Consciousness, No Dizziness, No Headache Psych : No Anxiety/Panic, No Depression, No SI/HI/AH/VH, No Social Issues, Heme/Lymph: No Bruising, No Bleeding,No Lymphadenopathy Endocrine : No Polyuria, No Polydipsia, No Temperature Intolerance <ALONDRA Luna - Last Filed: 12/13/22 19:14> Yes all other systems are reviewed and are negative <ALONDRA Luna - Last Filed: 12/13/22 19:14> [facility] Past Medical History Attestation statement: The following information was validated with the patient. <ALONDRA Luna - Last Filed: 12/13/22 19:14> Source: old records reviewed, obtained from family and nursing notes reviewed <ALONDRA Luna - Last Filed: 12/13/22 19:14> Medical History: Medical History No known health problems <ALONDRA Coronel - Last Filed: 12/13/22 16:04> Social History Social History: Social History Patient Tobacco Use Status: Current someday Tobacco user Advance Directives: No Advance Directives Information Provided: No <ALONDRA Coronel - Last Filed: 12/13/22 16:04> Physical Exam Vital Signs: Vital Signs: Last Vital Signs Temp 98 F 12/13/22 16:02 Pulse 79 12/13/22 16:02 Resp 18 12/13/22 16:02 BP 120/78 12/13/22 16:02 Pulse Ox 98 12/13/22 16:02 BMI result Body Mass Index 29.8 <ALONDRA Coronel - Last Filed: 12/13/22 16:04> Vital Signs: Last Vital Signs Temp 98 F 12/13/22 16:02 Pulse 79 12/13/22 16:02 Resp 18 12/13/22 16:02 BP 120/78 12/13/22 16:02 Pulse Ox 98 12/13/22 16:02 BMI result Body Mass Index 29.8 Vital signs reviewed. Blood pressure normal. Pulse normal. Respiration normal. Oxygen normal. Temperature normal. <ALONDRA Luna - Last Filed: 12/13/22 19:14> Appearance: Alert. Oriented X3. No acute distress. Head: Normal external exam. Normocephalic. Atraumatic. Eyes: PERRLA. EOMI. Conjunctiva and sclera normal. Eyelids normal. ENT: EAC normal. TM's Normal. Pharynx normal. Uvula midline. Moist mucous membranes. No lesions/ulcerations or masses noted on the tongue. Normal voice. No trismus noted. No drooling noted. No muffled voice noted. Shallow painful vesicles clustered on erythematous base to left upper lip and left lower leg consistent with herpes simplex virus. Neck: Normal inspection. Neck supple. FROM. No adenopathy. Thyroid Normal. No meningeal signs. CVS: Normal heart rate and rhythm. Heart sound normal. Pulses normal throughout. No murmurs/rales/gallops. Respiratory: No respiratory distress. Painless inspiration. Breath sounds normal. No wheezes/rales/rhonchi noted. Chest nontender. No accessory muscle usage noted or decreased air movement noted. Abdomen: Soft and nontender. Back: Full range of motion noted. Nontender. Skin: Skin warm and dry. Normal skin color. Normal skin turgor. No additional rashes/lesions/lacerations noted. Extremities: Extremities exhibit normal range of motion and nontender. Neuro: Oriented X 3. No motor deficit. No sensory deficit. Reflexes normal. Normal steady gait. No focal neuro deficits noted. CN's II-XII intact bilaterally? Vascular: + radial pulses. Normal cap refill. No cyanosis noted to upper extremity nails <ALONDRA Luna - Last Filed: 12/13/22 19:14> Course Course Course Narrative: This is an RME: Additional HPI, ROS, PE not included below will be deferred to primary provider. 32 year old female presents w/ painful bumps on upper and lower lip that sting X2 days. Never happened to her before. Denies fevers, chills, uri sx, nausea, vomiting, cp, sob PE w/ small vesicles to left upper and right mid lip Plan- patient will be evaluated in emergency minor care. <ALONDRA Coronel - Last Filed: 12/13/22 16:04> Reevaluation(s) Reevaluation #1: 32yoF with No Sig PMHx who is presenting to the ER with complaints of painful vesicles to her left upper lip and middle aspect of her lower lip that started over the past few days. She admits to recently having oral intercourse with her boyfriend 2 days before the symptoms started. She also had an after alliance party at her house with her was multiple individuals and she was sharing drinks with them. Although she is unaware of anyone with the same rash/lesions. On exam patient noted to have a herpes simplex virus to left upper and lower lip. I obtained cultures. Also obtain blood labs are within normal limits. UA revealed moderate amount of blood and small leukocytes therefore patient most likely has urinary tract infection. She is negative for . I explained to her if she would like to be treated for gonorrhea chlamydia as well and she reports that she would like treatment for gonorrhea chlamydia. Therefore 500 mg of IM Rocephin given at this time she will be sent home with doxycycline 100 b.i.d. for 10 days for possible chlamydia infection will also start her on Valtrex for oral herpes simplex. She still does have pending lab results for gonorrhea/chlamydia/herpes and syphilis. Along with instructions to not have any sexual intercourse and that she should use condoms when she is having intercourse and she can follow up with her primary care provider and to return if any new or worsening symptoms. Patient with friend at bedside understand agree this plan. <ALONDRA Luna - Last Filed: 12/13/22 19:14> Time: 19:03 <ALONDRA Luna - Last Filed: 12/13/22 19:14> Medications Administered Discontinued Medications Generic Name Dose Route Start Last Admin Trade Name Freq PRN Reason Stop Dose Admin Acyclovir 1 gm 12/13/22 17:02 12/13/22 17:33 Acyclovir 5 % Oint 15 Gm Tube TOPICAL 12/13/22 17:03 1 gm ONCE ONE Administration Valacyclovir HCl 1,000 mg 12/13/22 17:01 12/13/22 17:35 Valacyclovir Hcl 1,000 Mg Tablet PO 12/13/22 17:02 1,000 mg ONCE ONE Administration <ALONDRA Coronel - Last Filed: 12/13/22 16:04> Medications Administered Discontinued Medications Generic Name Dose Route Start Last Admin Trade Name Jonathanq PRN Reason Stop Dose Admin Acyclovir 1 gm 12/13/22 17:02 12/13/22 17:33 Acyclovir 5 % Oint 15 Gm Tube TOPICAL 12/13/22 17:03 1 gm ONCE ONE Administration Valacyclovir HCl 1,000 mg 12/13/22 17:01 12/13/22 17:35 Valacyclovir Hcl 1,000 Mg Tablet PO 12/13/22 17:02 1,000 mg ONCE ONE Administration <ALONDRA Luna - Last Filed: 12/13/22 19:14> Medical Decision Making Lab Data [facility] Lab Attestation statement: I reviewed the patient's lab results. <ALONDRA Luna - Last Filed: 12/13/22 19:14> Result Diagrams: 12/13/22 17:54 12/13/22 17:54 <ALONDRA Coronel - Last Filed: 12/13/22 16:04> Labs: Lab Results 12/13/22 12/13/22 12/13/22 Range/Units 17:37 17:37 17:54 WBC 10.3 (4.8-10.8) X10*3/uL RBC 4.47 (4.20-5.50) X10*6/uL Hgb 13.8 (12.0-16.0) g/dl Hct 42.0 (37.0-47.0) % MCV 94.0 (80.0-98.0) fL MCH 30.9 (27.0-33.0) pg MCHC 32.9 (31.0-35.0) g/dl RDW 12.5 (11.0-16.0) % Plt Count 288 (160-400) X10*3/uL MPV 10.2 (9.4-12.3) fL Immature Gran % (Auto) 0.2 (0.0-0.4) % Neut % (Auto) 55.3 (45-73) % Lymph % (Auto) 34.3 (20-40) % Elmore % (Auto) 8.9 (2-11) % Eos % (Auto) 1.0 (0-4) % Baso % (Auto) 0.3 (0-2) % Lymph # (Auto) 3.5 (1.2-4.9) X10*3/uL Elmore # (Auto) 0.9 (0.1-1.2) X10*3/uL Eos # (Auto) 0.1 (0.0-0.4) X10*3/uL Baso # (Auto) 0.0 (0.0-0.2) X10*3/uL Abs Immat Gran (auto) 0.02 (0.00-0.03) X10*3/uL Absolute Neuts (auto) 5.7 (2.0-8.3) x10*3/uL Absolute Nucleated RBC 0.000 (0.0-0.012) X10*3/uL Nucleated RBC % (auto) 0.0 (0.0-0.2) /100WBC Sodium (135-145) mmol/L Potassium (3.3-5.1) mmol/L Chloride (96-108) mmol/L Carbon Dioxide (22-29) mmol/L Anion Gap (12-20) BUN (9-16) mg/dL Creatinine (0.5-1.4) mg/dL Estim Creat Clear Calc Estimated GFR Random Glucose (60-115) mg/dL Calcium (8.4-10.2) mg/dL Magnesium (1.6-2.6) mg/dL Total Bilirubin (0.0-1.0) mg/dL AST (5-31) U/L ALT (0-31) U/L Alkaline Phosphatase (39-117) U/L Total Protein (6.5-8.0) g/dL Albumin (3.5-5.0) g/dL Urine Color Yellow Urine Appearance Clear Urine pH 5.5 (5.0-9.0) Ur Specific Crosby 1.025 (1.005-1.025) Urine Protein 100 (2+) H (Neg-Trace) mg/dL Urine Glucose (UA) Negative (Negative) mg/dL Urine Ketones Negative (Negative) mg/dL Urine Blood Moderate (2+) H (Negative) Urine Nitrite Negative (Negative) Ur Leukocyte Esterase Small (1+) H (Negative) Urine RBC 6-10 H (0-2) /HPF Urine WBC 11-20 H (0-5) /HPF Ur Squamous Epith Cells 0-2 (0-2) /HPF Urine Bacteria Trace (None Seen) Hyaline Casts 0-2 (0-2) /LPF Urine Test NEGATIVE (NEGATIVE) 12/13/22 Range/Units 17:54 WBC (4.8-10.8) X10*3/uL RBC (4.20-5.50) X10*6/uL Hgb (12.0-16.0) g/dl Hct (37.0-47.0) % MCV (80.0-98.0) fL MCH (27.0-33.0) pg MCHC (31.0-35.0) g/dl RDW (11.0-16.0) % Plt Count (160-400) X10*3/uL MPV (9.4-12.3) fL Immature Gran % (Auto) (0.0-0.4) % Neut % (Auto) (45-73) % Lymph % (Auto) (20-40) % Elmore % (Auto) (2-11) % Eos % (Auto) (0-4) % Baso % (Auto) (0-2) % Lymph # (Auto) (1.2-4.9) X10*3/uL Elmore # (Auto) (0.1-1.2) X10*3/uL Eos # (Auto) (0.0-0.4) X10*3/uL Baso # (Auto) (0.0-0.2) X10*3/uL Abs Immat Gran (auto) (0.00-0.03) X10*3/uL Absolute Neuts (auto) (2.0-8.3) x10*3/uL Absolute Nucleated RBC (0.0-0.012) X10*3/uL Nucleated RBC % (auto) (0.0-0.2) /100WBC Sodium 139 (135-145) mmol/L Potassium 4.4 (3.3-5.1) mmol/L Chloride 106 (96-108) mmol/L Carbon Dioxide 28 (22-29) mmol/L Anion Gap 9 L (12-20) BUN 16 (9-16) mg/dL Creatinine 0.80 (0.5-1.4) mg/dL Estim Creat Clear Calc 95.9 Estimated GFR > 60 Random Glucose 87 (60-115) mg/dL Calcium 9.4 (8.4-10.2) mg/dL Magnesium 2.0 (1.6-2.6) mg/dL Total Bilirubin 0.4 (0.0-1.0) mg/dL AST 19 (5-31) U/L ALT 23 (0-31) U/L Alkaline Phosphatase 49 (39-117) U/L Total Protein 7.1 (6.5-8.0) g/dL Albumin 4.0 (3.5-5.0) g/dL Urine Color Urine Appearance Urine pH (5.0-9.0) Ur Specific Crosby (1.005-1.025) Urine Protein (Neg-Trace) mg/dL Urine Glucose (UA) (Negative) mg/dL Urine Ketones (Negative) mg/dL Urine Blood (Negative) Urine Nitrite (Negative) Ur Leukocyte Esterase (Negative) Urine RBC (0-2) /HPF Urine WBC (0-5) /HPF Ur Squamous Epith Cells (0-2) /HPF Urine Bacteria (None Seen) Hyaline Casts (0-2) /LPF Urine Test (NEGATIVE) <ALONDRA Coronel - Last Filed: 12/13/22 16:04> Lab Results 12/13/22 12/13/22 12/13/22 Range/Units 17:37 17:37 17:54 WBC 10.3 (4.8-10.8) X10*3/uL RBC 4.47 (4.20-5.50) X10*6/uL Hgb 13.8 (12.0-16.0) g/dl Hct 42.0 (37.0-47.0) % MCV 94.0 (80.0-98.0) fL MCH 30.9 (27.0-33.0) pg MCHC 32.9 (31.0-35.0) g/dl RDW 12.5 (11.0-16.0) % Plt Count 288 (160-400) X10*3/uL MPV 10.2 (9.4-12.3) fL Immature Gran % (Auto) 0.2 (0.0-0.4) % Neut % (Auto) 55.3 (45-73) % Lymph % (Auto) 34.3 (20-40) % Elmore % (Auto) 8.9 (2-11) % Eos % (Auto) 1.0 (0-4) % Baso % (Auto) 0.3 (0-2) % Lymph # (Auto) 3.5 (1.2-4.9) X10*3/uL Elmore # (Auto) 0.9 (0.1-1.2) X10*3/uL Eos # (Auto) 0.1 (0.0-0.4) X10*3/uL Baso # (Auto) 0.0 (0.0-0.2) X10*3/uL Abs Immat Gran (auto) 0.02 (0.00-0.03) X10*3/uL Absolute Neuts (auto) 5.7 (2.0-8.3) x10*3/uL Absolute Nucleated RBC 0.000 (0.0-0.012) X10*3/uL Nucleated RBC % (auto) 0.0 (0.0-0.2) /100WBC Sodium (135-145) mmol/L Potassium (3.3-5.1) mmol/L Chloride (96-108) mmol/L Carbon Dioxide (22-29) mmol/L Anion Gap (12-20) BUN (9-16) mg/dL Creatinine (0.5-1.4) mg/dL Estim Creat Clear Calc Estimated GFR Random Glucose (60-115) mg/dL Calcium (8.4-10.2) mg/dL Magnesium (1.6-2.6) mg/dL Total Bilirubin (0.0-1.0) mg/dL AST (5-31) U/L ALT (0-31) U/L Alkaline Phosphatase (39-117) U/L Total Protein (6.5-8.0) g/dL Albumin (3.5-5.0) g/dL Urine Color Yellow Urine Appearance Clear Urine pH 5.5 (5.0-9.0) Ur Specific Crosby 1.025 (1.005-1.025) Urine Protein 100 (2+) H (Neg-Trace) mg/dL Urine Glucose (UA) Negative (Negative) mg/dL Urine Ketones Negative (Negative) mg/dL Urine Blood Moderate (2+) H (Negative) Urine Nitrite Negative (Negative) Ur Leukocyte Esterase Small (1+) H (Negative) Urine RBC 6-10 H (0-2) /HPF Urine WBC 11-20 H (0-5) /HPF Ur Squamous Epith Cells 0-2 (0-2) /HPF Urine Bacteria Trace (None Seen) Hyaline Casts 0-2 (0-2) /LPF Urine Test NEGATIVE (NEGATIVE) 12/13/22 Range/Units 17:54 WBC (4.8-10.8) X10*3/uL RBC (4.20-5.50) X10*6/uL Hgb (12.0-16.0) g/dl Hct (37.0-47.0) % MCV (80.0-98.0) fL MCH (27.0-33.0) pg MCHC (31.0-35.0) g/dl RDW (11.0-16.0) % Plt Count (160-400) X10*3/uL MPV (9.4-12.3) fL Immature Gran % (Auto) (0.0-0.4) % Neut % (Auto) (45-73) % Lymph % (Auto) (20-40) % Elmore % (Auto) (2-11) % Eos % (Auto) (0-4) % Baso % (Auto) (0-2) % Lymph # (Auto) (1.2-4.9) X10*3/uL Elmore # (Auto) (0.1-1.2) X10*3/uL Eos # (Auto) (0.0-0.4) X10*3/uL Baso # (Auto) (0.0-0.2) X10*3/uL Abs Immat Gran (auto) (0.00-0.03) X10*3/uL Absolute Neuts (auto) (2.0-8.3) x10*3/uL Absolute Nucleated RBC (0.0-0.012) X10*3/uL Nucleated RBC % (auto) (0.0-0.2) /100WBC Sodium 139 (135-145) mmol/L Potassium 4.4 (3.3-5.1) mmol/L Chloride 106 (96-108) mmol/L Carbon Dioxide 28 (22-29) mmol/L Anion Gap 9 L (12-20) BUN 16 (9-16) mg/dL Creatinine 0.80 (0.5-1.4) mg/dL Estim Creat Clear Calc 95.9 Estimated GFR > 60 Random Glucose 87 (60-115) mg/dL Calcium 9.4 (8.4-10.2) mg/dL Magnesium 2.0 (1.6-2.6) mg/dL Total Bilirubin 0.4 (0.0-1.0) mg/dL AST 19 (5-31) U/L ALT 23 (0-31) U/L Alkaline Phosphatase 49 (39-117) U/L Total Protein 7.1 (6.5-8.0) g/dL Albumin 4.0 (3.5-5.0) g/dL Urine Color Urine Appearance Urine pH (5.0-9.0) Ur Specific Crosby (1.005-1.025) Urine Protein (Neg-Trace) mg/dL Urine Glucose (UA) (Negative) mg/dL Urine Ketones (Negative) mg/dL Urine Blood (Negative) Urine Nitrite (Negative) Ur Leukocyte Esterase (Negative) Urine RBC (0-2) /HPF Urine WBC (0-5) /HPF Ur Squamous Epith Cells (0-2) /HPF Urine Bacteria (None Seen) Hyaline Casts (0-2) /LPF Urine Test (NEGATIVE) <ALONDRA Luna - Last Filed: 12/13/22 19:14> Independent Historian Clinical information obtained from an independent historian. History obtained from or confirmed by: Friend <ALONDRA Luna - Last Filed: 12/13/22 19:14> Prescription Management I considered prescription management with: Antiviral and Antibiotic <ALONDRA Luna - Last Filed: 12/13/22 19:14> Patient will be given antiviral Valtrex for oral herpes simplex along with doxycycline for possible chlamydia and she was given IM Rocephin for possible gonorrhea. <ALONDRA Luna - Last Filed: 12/13/22 19:14> Discharge Plan Discharge Clinical Impression: Oral herpes simplex infection, UTI (urinary tract infection) <ALONDRA Coronel Last Filed: 12/13/22 16:04> Patient Disposition: Home, Self-Care <ALONDRA Coronel Last Filed: 12/13/22 16:04> Instructions: Sexually Transmitted Diseases (ED), Safe Sex Practices (ED), Urinary Tract Infection in Women (ED), Oral Herpes Simplex Virus Infections (ED) <ALONDRA Coronel Last Filed: 12/13/22 16:04> Additional Instructions: Tiene resultados de laboratorio pendientes, si alguno es positivo, lo contactaremos dentro de 5 a 7 d?as. Mant?ngase abstinente de cualquier relaci?n sexual hasta que treva s?ntomas se resuelvan por completo y ya no tenga sarpullido. Se recomienda usar preservativo para no propagar esto. You have pending lab results if any are positive you will be contacted within 5-7 days. Stay abstinent from any sexual intercourse until your symptoms completely resolving and you no longer have a rash. It is recommended that use a condom to not spread this. <ALONDRA Coronel Last Filed: 12/13/22 16:04> Prescriptions: New valacyclovir [Valtrex] 1 gram tablet 1,000 mg PO BID 10 Days Qty: 20 3RF doxycycline monohydrate 100 mg tablet 100 mg PO BID 10 Days Qty: 20 0RF No Action cetirizine 10 mg capsule 10 mg PO DAILY PRN (Reason: allergy symptoms) Qty: 30 2RF amoxicillin 500 mg capsule 500 mg PO BID 10 Days Qty: 20 0RF sulfamethoxazole-trimethoprim [Bactrim DS] 800-160 mg tablet 1 tab PO BID Qty: 6 0RF phenazopyridine 100 mg tablet 100 mg PO TID Qty: 6 0RF azithromycin [Zithromax Z-Shin] 250 mg tablet See Rx Instructions .ROUTE .COMPLEX Qty: 6 0RF Rx Instructions: take 500 mg today (day 1), then 250 mg for 4 days (days 2-5) prednisone 20 mg tablet 40 mg PO DAILY Qty: 10 0RF ondansetron 4 mg tablet,disintegrating 4 mg PO Q8H PRN (Reason: nausea and vomiting) Qty: 5 0RF nitrofurantoin monohyd/m-cryst [Macrobid] 100 mg capsule 100 mg PO Q12H 5 Days Qty: 10 0RF Rx Instructions: must administer with a meal/food <ALONDRA Coronel - Last Filed: 12/13/22 16:04> Referrals: Physician,None [Primary Care Provider] - (Seguimiento con michele proveedor de atenci?n primaria gallo pronto stephanie sea posible) <ALONDRA Coronel - Last Filed: 12/13/22 16:04> Stand Alone Forms: Work/School Release <ALONDRA Coronel - Last Filed: 12/13/22 16:04> Print Language: Montenegrin <ALONDRA Coronel - Last Filed: 12/13/22 16:04>
[2022-12-13] MEDS: Acyclovir 5 % Oint 15 GM TUBE TOPICAL (17:33)
[2022-12-13] MEDS: valACYclovir HCL 1,000 MG TABLET 1000 MG PO (17:35)
[2022-12-13 17:58] LABS: Appearance Urine Clear; Color Urine Yellow; Glucose Urine UA Negative (Negative); Leukocyte Esterase Urine Small (1+) (Negative); Nitrite Urine Negative (Negative); PH 5.5 (5.0-9.0); Specific Gravity - Urine 1.025 (1.005-1.025); UMIC TRIGGER UACC YES; Urine Blood Moderate (2+) (Negative); Urine Ketones Negative (Negative); Urine Protein 100 (2+) mg/dL (Neg-Trace)
[2022-12-13 17:59] LABS: MANUAL DIFF FLAG NO
[2022-12-13 18:00] LABS: UPreg QC Valid YES; Urine Pregnancy NEGATIVE (NEGATIVE)
[2022-12-13 18:00] LABS: Basophils Percent Auto 0.3 % (0-2); Eosinophils Absolute Auto 0.1 X10*3/uL (0.0-0.4); Hemoglobin 13.8 g/dl (12.0-16.0); Imm Gran Abs Auto 0.02 X10*3/uL (0.00-0.03); Imm Gran Pct Auto 0.2 % (0.0-0.4); Lymphocytes Absolute Auto 3.5 X10*3/uL (1.2-4.9); Lymphocytes Percent Auto 34.3 % (20-40); Mean Corpuscular HGB Conc 32.9 g/dl (31.0-35.0); Mean Corpuscular Hemoglobin 30.9 pg (27.0-33.0); Mean Platelet Volume 10.2 fL (9.4-12.3); Monocytes Absolute Auto 0.9 X10*3/uL (0.1-1.2); Monocytes Percent Auto 8.9 % (2-11); Neutrophils Absolute Auto 5.7 x10*3/uL (2.0-8.3); Neutrophils Percent Auto 55.3 % (45-73); Platelet Count 288 X10*3/uL (160-400); Red Blood Count 4.47 X10*6/uL (4.20-5.50); Red Cell Distribution Width 12.5 % (11.0-16.0); White Blood Count 10.3 X10*3/uL (4.8-10.8)
[2022-12-13 18:03] LABS: Bacteria Urine Trace (None Seen); Hyaline Casts Urine 0-2 /LPF (0-2); Squamous Epithelial Cell Urine 0-2 /HPF (0-2); UACC Culture Trigger YES
[2022-12-13 18:21] LABS: Alanine Aminotransferase 23 U/L (0-31); Alkaline Phosphatase 49 U/L (39-117); Anion Gap 9 (12-20); Aspartate Amino Transferase 19 U/L (5-31); Bilirubin Total 0.4 mg/dL (0.0-1.0); Blood Urea Nitrogen 16 mg/dL (9-16); Calcium 9.4 mg/dL (8.4-10.2); Carbon Dioxide 28 mmol/L (22-29); Chloride 106 mmol/L (96-108); Creatinine Clr Calc Pharmacy 95.9; Estimated Glomerular Filt Rate > 60; Glucose Random 87 mg/dL (60-115); Potassium 4.4 mmol/L (3.3-5.1); Sodium 139 mmol/L (135-145); Total Protein 7.1 g/dL (6.5-8.0)
[2022-12-13] MEDS: cefTRIAXone sodium 500 MG, Lidocaine HCl 1 % MPF 1 ML IM (19:10)
[2022-12-14 04:41] LABS: Syphilis Screen Nonreactive (Nonreactive)
[2022-12-14 09:52] LABS: CT PCR DETECTED (Not Detect.); NG PCR NOT DETECTED (Not Detect.)
== END 2022-12-13 19:37 | disposition home or self-care (01) ==
PROVIDERS: Physician Assistant Medical; Emergency Provider Emergency Medicine
DX: B00.2 Herpesviral gingivostomatitis and pharyngotonsillitis (principal); N39.0 Urinary tract infection, site not specified; Z79.899 Other long term (current) drug therapy
CPT/HCPCS: 0353U; 36415; 80053; 81001; 81025; 83735; 85025; 86780; 87086; 87255; 96372; 99282; 99284; J0696

== ENCOUNTER 2023-03-27 08:14 | Emergency (ER) | payer MEDICAID, SELFPAY ==
[2023-03-27 08:22] VITALS: BP 133/80; PULSE 90; RESP 18; TEMP 36.7; O2SAT 100; BMI 33.7
--- NOTE | 2023-03-27 09:13 | ED.GENADULT ---
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 Patient reports that she woke up 2 days ago with a sore throat that has been progressively getting worse. Patient endorses chills, no known fevers. Denies any nasal congestion or runny nose. Denies cough, chest pain, shortness of breath, abdominal pain, nausea, vomiting or diarrhea. She states that she took a medication that was given to her by her mother, unsure the name of it however this did not provide her with any relief. Denies any sick contacts. She states that she is able to swallow without difficulty. No other complaints or concerns at this time. MD complaint: Sore throat, ear pain Onset (ago): day(s) Radiation: non-radiation Pain Consistency: constant Relieving factors: none Exacerbating factors: none Associated symptoms: fever/chills Treatments prior to arrival: none Related Data Previous Rx's Medication Instructions Recorded amoxicillin 500 mg capsule 500 mg PO BID 10 days #20 caps 08/01/21 cetirizine 10 mg capsule 10 mg PO DAILY PRN allergy 08/01/21 symptoms #30 caps azithromycin 250 mg tablet See Rx Instructions PO .COMPLEX #6 09/08/21 (Zithromax Z-Shin) tabs ondansetron 4 mg disintegrating 4 mg PO Q8H PRN nausea and 09/08/21 tablet vomiting #5 tabs prednisone 20 mg tablet 40 mg PO DAILY #10 tabs 09/08/21 nitrofurantoin 100 mg PO Q12H 5 days #10 caps 12/17/21 monohydrate/macrocrystals 100 mg capsule (Macrobid) phenazopyridine 100 mg tablet 100 mg PO TID 6 doses #6 tabs 12/20/21 sulfamethoxazole 800 1 tab PO BID #6 tabs 12/20/21 mg-trimethoprim 160 mg tablet (Bactrim DS) doxycycline monohydrate 100 mg 100 mg PO BID 10 days #20 tabs 12/13/22 tablet valacyclovir 1 gram tablet 1,000 mg PO BID Oral herpes 12/13/22 (Valtrex) simplex 10 days #20 tabs acetaminophen 650 mg 650 mg PO Q8H PRN pain #30 tabs 03/27/23 tablet,extended release (Tylenol 8 Hour) amoxicillin 500 mg capsule 500 mg PO BID 10 days #20 caps 03/27/23 ibuprofen 600 mg tablet 600 mg PO Q6H PRN pain #30 tabs 03/27/23 Allergies Allergy/AdvReac Type Severity Reaction Status Date / Time No Known Allergies Allergy Verified 08/01/21 08:46 [No Known Allergies*] Review of Systems Review of Systems: Constitutional: No Weight loss, No Fever, + Chills ENT/Mouth:+ Ear Pain, No Nasal Congestion, No Sinus Pain, No Hoarseness, +sore throat, No Rhinorrhea, No Swallowing Difficulty Cardiovascular: No Chest Pain, No SOB Respiratory: No Cough, No Sputum, No Wheezing Gastrointestinal: No Nausea, No Vomiting, No Diarrhea, No Constipation, No Abdominal pain Genitourinary: No Dysuria, No Urinary Frequency, No Hematuria, No Urinary Incontinence/retention, No Urgency, No Flank Pain Musculoskeletal: No joint pain, No Myalgias, No Joint Swelling Skin: No Skin Lesions, No rash Neuro: No Weakness, No Numbness, No Paresthesias PMFSH Past Medical History Medical History No known health problems Social History Social History Patient Tobacco Use Status: Current someday Tobacco user Advance Directives: No Advance Directives Information Provided: No Physical Exam ED Vital Signs: Vital Signs - 24 hr 03/27/23 08:22 Temperature 98.0 F Pulse Rate 90 Respiratory Rate 18 Blood Pressure 133/80 Pulse Oximetry 100 Oxygen Delivery Method Room Air BMI result Body Mass Index 33.7 General: Awake, alert, and oriented X3. No acute distress. HEENT: Normal inspection, oropharynx is erythematous with 2+ bilateral tonsils, with bilateral exudates noted. Uvula is midline. Able to tolerate secretions without difficulty. No trismus, drooling, or dysphonia. Auditory canals are non erythematous, TMs are nonbulging, nonerythematous. Anterior cervical bilateral lymphadenopathy noted. CVS: Normal heart rate and rhythm. Pulses normal, S1-S2 regular.. Respiratory: No respiratory distress, lungs clear to auscultation bilaterally, no wheezes, rales or rhonchi. Skin: Warm, dry, no rashes noted to exposed skin. Normal skin color. Normal skin turgor. Extremities: Normal to inspection Neuro: Oriented X 3. No motor deficit. No sensory deficit. Medical Decision Making Medical Decision Making [facility] Narrative: 32-year-old female with no known past medical history, presenting to the emergency department for evaluation of sore throat and ear pain x2 days. On arrival, all vital signs within normal limits, temperature 98? F. on exam, oropharynx is erythematous with bilateral tonsillar hypertrophy, uvula is midline, no trismus, drooling, or dysphonia. Patient is able to drink and eat however reports worsening pain with this. Strep test positive in department today. Will treat with course of amoxicillin, also given script for ibuprofen and Tylenol to be used as needed for pain and fevers. Discussed the importance of taking full course of antibiotics, given return precautions if any new or worsening symptoms occur. Differential Diagnosis Differential Diagnoses: The differential diagnosis associated with the presentation includes Strep pharyngitis, peritonsillar abscess, upper respiratory infection, sinusitis, otitis media/externa Lab Data [facility] Lab Attestation statement: I reviewed the patient's lab results. Strep positive Labs: Lab Results 03/27/23 Range/Units 08:37 S. pyogenes GrpA DOMINIC Positive A (Negative) External Record Review Review of previous hospital visits for past medical history, confirmed with patient. Prescription Management I considered prescription management with: Pain Medication and Antibiotic Discharge Plan Discharge Clinical Impression: Strep pharyngitis Patient Disposition: Home, Self-Care Instructions: Strep Throat (ED) Additional Instructions: You tested positive for strep throat today. This is a bacterial infection that needs to be treated with antibiotics. Please take prescribed antibiotics (Amoxicillin) as directed, finish the entire course even if your feeling better. Take Tylenol and or ibuprofen as needed for pain and fevers. Saltwater gargles, tea with honey and warm soups can help alleviate the pain the your having an your throat. Please throw your toothbrush after you complete the course of antibiotics as you may reinfected yourself if you continue to use the same toothbrush. If any new or worsening symptoms occur including but not limited to unable to swallow, worsening pain or any other concerning symptoms please return for re-evaluation. Hoy diste positivo por faringitis estreptoc?cica. Esta es angelia infecci?n bacteriana que necesita ser tratada con antibi?ticos. [place] los antibi?ticos recetados (amoxicilina) seg?n las indicaciones, termine todo el tratamiento incluso si se siente mejor. [place] Tylenol o ibuprofeno seg?n sea necesario para el dolor y la fiebre. Las g?rgaras de agua salada, el t? con miel y las sopas calientes pueden ayudar a aliviar el dolor de garganta. Tire michele cepillo de dientes despu?s de completar el ciclo de antibi?ticos, ya que puede volver a infectarse si contin?a usando el mismo cepillo de dientes. Si se presentan s?ntomas nuevos o que empeoran, incluidos, entre otros, incapacidad para tragar, dolor que empeora o cualquier otro s?ntoma preocupante, regrese para angelia reevaluaci?n. Prescriptions: New amoxicillin 500 mg capsule 500 mg PO BID 10 Days Qty: 20 0RF ibuprofen 600 mg tablet 600 mg PO Q6H PRN (Reason: pain) Qty: 30 0RF acetaminophen [Tylenol 8 Hour] 650 mg tablet extended release 650 mg PO Q8H PRN (Reason: pain) Qty: 30 0RF No Action cetirizine 10 mg capsule 10 mg PO DAILY PRN (Reason: allergy symptoms) Qty: 30 2RF amoxicillin 500 mg capsule 500 mg PO BID 10 Days Qty: 20 0RF sulfamethoxazole-trimethoprim [Bactrim DS] 800-160 mg tablet 1 tab PO BID Qty: 6 0RF phenazopyridine 100 mg tablet 100 mg PO TID Qty: 6 0RF valacyclovir [Valtrex] 1 gram tablet 1,000 mg PO BID 10 Days Qty: 20 3RF doxycycline monohydrate 100 mg tablet 100 mg PO BID 10 Days Qty: 20 0RF azithromycin [Zithromax Z-Shin] 250 mg tablet See Rx Instructions .ROUTE .COMPLEX Qty: 6 0RF Rx Instructions: take 500 mg today (day 1), then 250 mg for 4 days (days 2-5) prednisone 20 mg tablet 40 mg PO DAILY Qty: 10 0RF ondansetron 4 mg tablet,disintegrating 4 mg PO Q8H PRN (Reason: nausea and vomiting) Qty: 5 0RF nitrofurantoin monohyd/m-cryst [Macrobid] 100 mg capsule 100 mg PO Q12H 5 Days Qty: 10 0RF Rx Instructions: must administer with a meal/food Print Language: Algerian
== END 2023-03-27 09:36 | disposition home or self-care (01) ==
PROVIDERS: Emergency Provider Emergency Medicine Emergency Medical Services
DX: J02.0 Streptococcal pharyngitis (principal)
CPT/HCPCS: 87651; 99282; 99283

== ENCOUNTER 2023-07-04 07:39 | Emergency (ER) | payer MEDICAID, SELFPAY ==
[2023-07-04 07:59] VITALS: BP 132/83; PULSE 121; RESP 16; TEMP 37.4; O2SAT 99; BMI 32.0
--- NOTE | 2023-07-04 08:37 | ED.URI ---
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 Related Data Previous Rx's Medication Instructions Recorded amoxicillin 500 mg capsule 500 mg PO BID 10 days #20 caps 08/01/21 cetirizine 10 mg capsule 10 mg PO DAILY PRN allergy 08/01/21 symptoms #30 caps azithromycin 250 mg tablet See Rx Instructions PO .COMPLEX #6 09/08/21 (Zithromax Z-Shin) tabs ondansetron 4 mg disintegrating 4 mg PO Q8H PRN nausea and 09/08/21 tablet vomiting #5 tabs prednisone 20 mg tablet 40 mg (2 x 20 mg) PO DAILY #10 tabs 09/08/21 nitrofurantoin 100 mg PO Q12H 5 days #10 caps 12/17/21 monohydrate/macrocrystals 100 mg capsule (Macrobid) phenazopyridine 100 mg tablet 100 mg PO TID 6 doses #6 tabs 12/20/21 sulfamethoxazole 800 1 tab PO BID #6 tabs 12/20/21 mg-trimethoprim 160 mg tablet (Bactrim DS) doxycycline monohydrate 100 mg 100 mg PO BID 10 days #20 tabs 12/13/22 tablet valacyclovir 1 gram tablet 1,000 mg PO BID Oral herpes 12/13/22 (Valtrex) simplex 10 days #20 tabs acetaminophen 650 mg 650 mg PO Q8H PRN pain #30 tabs 03/27/23 tablet,extended release (Tylenol 8 Hour) amoxicillin 500 mg capsule 500 mg PO BID 10 days #20 caps 03/27/23 ibuprofen 600 mg tablet 600 mg PO Q6H PRN pain #30 tabs 03/27/23 Allergies Allergy/AdvReac Type Severity Reaction Status Date / Time No Known Allergies Allergy Verified 08/01/21 08:46 [No Known Allergies*] Review of Systems Review of Systems: Pertinent positives and negatives as stated in HPI [facility] Past Medical History Source: nursing notes reviewed Medical History No known health problems Social History Social History Patient Tobacco Use Status: Current someday Tobacco user Advance Directives: No Advance Directives Information Provided: Yes Physical Exam Vital Signs: Vital Signs: Last Vital Signs Temp 99.4 F 07/04/23 07:59 Pulse 121 H 07/04/23 07:59 Resp 16 07/04/23 07:59 BP 132/83 07/04/23 07:59 Pulse Ox 99 07/04/23 07:59 O2 Del Method Room Air 07/04/23 07:59 BMI result Body Mass Index 32.0 VITAL SIGNS: Reviewed. GENERAL: Well developed, well nourished, in no acute distress. HEAD: Normocephalic/atraumatic EYES: PERRLA, EOMI EARS: Ext canals without abnormality, TMs non-bulging and non-erythematous NOSE: Nares patent bilateral OROPHARYNX: no oral lesions noted, posterior pharynx erythematous with noted tonsillar enlargement/erythema/exudates NECK: Supple, no adenopathy LUNGS: Normal breath sounds. No adventitious sounds or accessory muscle use. SpO2<99> CARDIOVASCULAR: Regular rate and rhythm without noted murmurs ABDOMEN: Soft, non-tender, non-distended with bowel sounds. MUSCULOSKELETAL: No tenderness, deformities, or effusions noted on gross inspection. EXTREMITIES: No cyanosis, clubbing or edema. SKIN: Inspection of the skin reveals no rashes NEUROLOGIC: Alert and oriented x 4. Strength and sensation to light touch were grossly intact x 4. Medical Decision Making Medical Decision Making [facility] Narrative: 33-year-old female with history and clinical presentation, DDX: Viral syndrome, viral pharyngitis, strep pharyngitis. Patient given combination analgesics, Cepacol and review of investigations demonstrates COVID-19 is negative as well as strep. I discussed all results with the patient and instructed her to retest herself for COVID-19 in 2-3 days and a follow-up on throat culture. Differential Diagnosis Differential Diagnoses: The differential diagnosis associated with the presentation includes Please see the discussion above Admission/Observation Consideration of admission/observation: Escalation of care including admission/observation considered Please see the discussion above. Lab Data [facility] Lab Attestation statement: I reviewed the patient's lab results. Please see the discussion above Labs: Lab Results 07/04/23 Range/Units 07:53 COVID-19 (CANDICE) Negative (Negative) COVID-19 Clin Com See Note S. pyogenes GrpA DOMINIC Negative (Negative) Discharge Plan Discharge Clinical Impression: Pharyngitis Patient Disposition: Home, Self-Care Instructions: Pharyngitis (ED) Additional Instructions: 1. Recomiende Tylenol/ibuprofeno de venta audrey seg?n sea necesario para controlar el dolor. Tambi?n te recomiendo que pruebes hacer g?rgaras con soluci?n salina (es angelia mezcla de agua tibia del grifo con eleanor de sterling), haz g?rgaras doug 5 minutos, de 3 a 4 veces al d?a. 2. Tambi?n puede probar Cepacol, de venta audrey, para aliviar el dolor de garganta. 3. Quin un seguimiento con michele proveedor de atenci?n primaria. Regrese a la radames de emergencias si los s?ntomas empeoran. 1. Recommend [id number] Tylenol/ibuprofen as needed for pain control. I also recommend that you try saline gargles (this is a mixture of warm tap water with table salt), gargle for 5 minutes, 3 to 4 times a day. 2. You may also try [id number] Cepacol for relief of sore throat. 3. Follow-up with your primary care provider. Return to the ER for any worsening symptoms. Prescriptions: No Action cetirizine 10 mg capsule 10 mg PO DAILY PRN (Reason: allergy symptoms) Qty: 30 2RF amoxicillin 500 mg capsule 500 mg PO BID 10 Days Qty: 20 0RF sulfamethoxazole-trimethoprim [Bactrim DS] 800-160 mg tablet 1 tab PO BID Qty: 6 0RF phenazopyridine 100 mg tablet 100 mg PO TID Qty: 6 0RF valacyclovir [Valtrex] 1 gram tablet 1,000 mg PO BID 10 Days Qty: 20 3RF doxycycline monohydrate 100 mg tablet 100 mg PO BID 10 Days Qty: 20 0RF azithromycin [Zithromax Z-Shin] 250 mg tablet See Rx Instructions .ROUTE .COMPLEX Qty: 6 0RF Rx Instructions: take 500 mg today (day 1), then 250 mg for 4 days (days 2-5) prednisone 20 mg tablet 40 mg PO DAILY Qty: 10 0RF ondansetron 4 mg tablet,disintegrating 4 mg PO Q8H PRN (Reason: nausea and vomiting) Qty: 5 0RF nitrofurantoin monohyd/m-cryst [Macrobid] 100 mg capsule 100 mg PO Q12H 5 Days Qty: 10 0RF Rx Instructions: must administer with a meal/food amoxicillin 500 mg capsule 500 mg PO BID 10 Days Qty: 20 0RF ibuprofen 600 mg tablet 600 mg PO Q6H PRN (Reason: pain) Qty: 30 0RF acetaminophen [Tylenol 8 Hour] 650 mg tablet extended release 650 mg PO Q8H PRN (Reason: pain) Qty: 30 0RF Stand Alone Forms: Work/School Release Print Language: Serbian
== END 2023-07-04 09:19 | disposition home or self-care (01) ==
PROVIDERS: Emergency Provider Student in an Organized Health Care Education/Training Program
DX: J02.9 Acute pharyngitis, unspecified (principal); M79.10 Myalgia, unspecified site; R53.83 Other fatigue; F17.200 Nicotine dependence, unspecified, uncomplicated; Z20.822 Contact with and (suspected) exposure to COVID-19; Z11.52 Encounter for screening for COVID-19; Z71.6 Tobacco abuse counseling; Z79.899 Other long term (current) drug therapy
CPT/HCPCS: 87635; 87651; 99283; 99284

== ENCOUNTER 2024-05-14 09:21 | Emergency (ER) | payer MEDICAID, SELFPAY ==
[2024-05-14 09:35] VITALS: BP 133/79; PULSE 84; RESP 16; TEMP 36.9; O2SAT 100; BMI 33.6
--- NOTE | 2024-05-14 10:01 | ED_ITS ---
HPI - URI/Sore Throat General Chief Complaint: Upper Respiratory Symptoms Stated Complaint: Fever, sore throat Time Seen by Provider: 05/14/24 09:50 Source: patient and diplomatic interpreter/translator (Mauritanian) Mode of arrival: ambulatory Limitations: language barrier (sri lankan speaking ) History of Present Illness ED Provider: KAMILAH BROWN PA-C HPI Narrative: 33 year old Mauritanian speaking female with no significant pmhx presents to the ED today for evaluation of fever, myalgias, and sore throat x24 hours. Admits to associated change in taste. No documented temp at home. Reports taking Motrin around 0700 this morning. Denies known sick contacts. Denies ear pain, nausea/vomiting, cough, cp, sob, hemoptysis. deaf interpreter utilized throughout visit to communicate with patient. Related Data Previous Rx's ?Medication ?Instructions ?Recorded amoxicillin 500 mg capsule 500 mg PO BID 10 days #20 caps 08/01/21 cetirizine 10 mg capsule 10 mg PO DAILY PRN allergy 08/01/21 symptoms #30 caps azithromycin 250 mg tablet See Rx Instructions PO .COMPLEX #6 09/08/21 (Zithromax Z-Shin) tabs ondansetron 4 mg disintegrating 4 mg PO Q8H PRN nausea and 09/08/21 tablet vomiting #5 tabs prednisone 20 mg tablet 40 mg (2 x 20 mg) PO DAILY #10 tabs 09/08/21 nitrofurantoin 100 mg PO Q12H 5 days #10 caps 12/17/21 monohydrate/macrocrystals 100 mg capsule (Macrobid) phenazopyridine 100 mg tablet 100 mg PO TID 6 doses #6 tabs 12/20/21 sulfamethoxazole 800 1 tab PO BID #6 tabs 12/20/21 mg-trimethoprim 160 mg tablet (Bactrim DS) doxycycline monohydrate 100 mg 100 mg PO BID 10 days #20 tabs 12/13/22 tablet valacyclovir 1 gram tablet 1,000 mg PO BID Oral herpes 12/13/22 (Valtrex) simplex 10 days #20 tabs acetaminophen 650 mg 650 mg PO Q8H PRN pain #30 tabs 03/27/23 tablet,extended release (Tylenol 8 Hour) amoxicillin 500 mg capsule 500 mg PO BID 10 days #20 caps 03/27/23 ibuprofen 600 mg tablet 600 mg PO Q6H PRN pain #30 tabs 03/27/23 benzocaine 15 mg-menthol 2.6 mg 1 toi mucous membrane Q2-4H PRN 05/14/24 lozenges (Cepacol Sore Throat sore throat #16 ea (benzocaine-menthol)) prednisone 20 mg tablet 20 mg PO DAILY 4 days #4 tabs 05/14/24 Allergies Allergy/AdvReac Type Severity Reaction Status Date / Time No Known Allergies Allergy Verified 05/14/24 09:41 [No Known Allergies*] Review of Systems Review of Systems: Constitutional: No fever, chills, fatigue, night sweats, weight changes ENT/Mouth: No ear pain, hearing loss, nasal congestion, sinus pain, rhinorrhea, +sore throat, +odynophagia, No dysphagia Eyes: No eye pain, swelling, redness, vision changes, discharge Cardio: No chest pain, palpitations, WALDRON, orthopnea, peripheral edema Pulm: No SOB, cough, sputum, wheezing, dyspnea, hemoptysis GI: No nausea, vomiting, hematemesis, abdominal pain, diarrhea, constipation, hematochezia, melena : No irregular bleeding, dysuria, frequency, urgency, hesitancy, hematuria, flank pain MSK: No back pain, neck pain, joint pain, +myalgias Skin: No lesions, rashes Neuro: No weakness, numbness, paresthesias, LOC, dizziness, headache All other systems reviewed and are negative. [facility] Past Medical History Attestation statement: The following information was validated with the patient. Source: old records reviewed and nursing notes reviewed Medical History No known health problems Social History Social History Patient Tobacco Use Status: Current someday Tobacco user Advance Directives: No Advance Directives Information Provided: Yes Physical Exam Vital Signs: Vital Signs: Last Vital Signs Temp 98.4 F 05/14/24 09:35 Pulse 84 05/14/24 09:35 Resp 16 05/14/24 09:35 BP 133/79 05/14/24 09:35 Pulse Ox 100 05/14/24 09:35 O2 Del Method Room Air 08/20/24 09:35 BMI result Body Mass Index 33.6 vital signs stable, afebrile. Const: General: cooperative, healthy appearing, comfortable and no acute distress Orientation/consciousness: patient oriented x3 Limitations: no limitations HEENT: Other: + posterior oropharynx erythematous. the re is b/l tonsilar edema and exudates. no peritonsilar masses. uvula midline. controlling secretions and speaking in complete sentences. no anterior neck swelling. Head: Yes normal to inspection, Yes normocephalic and Yes atraumatic Ears: hearing grossly normal bilaterally, external ears normal, TM's normal bilaterally, EAC's normal, mastoids normal and no periauricular adenopathy General nose exam: Normal external nose present and No nasal discharge present Face and sinus: Yes normal facial exam and Yes sinuses nontender Eyes: General: appearance normal, both eyes and all related structures Pupils: Equal, round and reactive pupils present Neck: Neck: Yes normal visual inspection, Yes full ROM and Yes no lymphadenopathy Resp: Effort & Inspection: normal respiratory effort and able to speak in complete sentences Auscultation: clear to auscultation bilaterally Cardio: Rate: regular rate Rhythm: regular rhythm GI: Inspection: Yes normal to inspection Palpation (GI): Soft to palpation and nontender Skin: General skin exam: no rashes or lesions noted Neuro: General: patient oriented x3, gait normal and moves all extremities Cranial nerves: Yes Equal, round and reactive pupils present Extrem: General: Yes normal to inspection Course Course Course Narrative: 1103-- patient has tested negative for COVID, flu, RSV, strep throat. 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 She has tolerated p.o. Decadron in the ED. Controlling secretions. Will send her home with prednisone for tonsillar swelling along with Cepacol throat lozenges. Patient has remained stable throughout ED visit today. Discussed worrisome signs and symptoms and when to return to the ED. All questions answered at this time. Patient is agreeable with disposition and stable for discharge. Medications Administered Discontinued Medications Generic Name Dose Route Start Last Admin Trade Name Freq PRN Reason Stop Dose Admin Dexamethasone Sodium Phosphate 10 mg 05/14/24 10:10 05/14/24 10:20 Dexamethasone Sod Phosphate 10 Mg/Ml Vial IVPUSH 05/14/24 10:11 10 mg ONCE ONE Administration Medical Decision Making Medical Decision Making [facility] Narrative: 33 year old sri lankan speaking female with no significant pmhx presents to the ED today for evaluation of fever, myalgias, and sore throat x24 hours. VSS. Afebrile. She is nontoxic appearing and in NAD. On exam there is bilateral tonsillar edema with exudates. no peritonsilar masses. uvula is midline. controlling secretions and speaking in complete sentences. bilateral EACs and TMs wnl. no LAD. lungs are cta. skin w/d/i, no rashes. Differential diagnosis includes viral syndrome, strep throat. Lower suspicion for mono. 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 Plan for viral and strep swabs, steroid, re-evaluation. Differential Diagnosis Differential Diagnoses: The differential diagnosis associated with the presentation includes as above. Admission/Observation Not indicated Lab Data [facility] Lab Attestation statement: I reviewed the patient's lab results. as above Labs: Lab Results 05/14/24 Range/Units 09:58 Influenza Type A (PCR) NEGATIVE (Negative) Influenza Type B (PCR) NEGATIVE (Negative) RSV RNA Qual (PCR) NEGATIVE (Negative) SARS-CoV-2 RNA (RT-PCR) NEGATIVE (Negative) S. pyogenes GrpA DOMINIC Negative (Negative) External Record Review External record reviewed: Inpatient record Prescription Management I considered prescription management with: Pain Medication Social Determinants Patient?s care significantly limited by Social Determinants of Health including: Other Social Determinant of Health Critical Care Time Critical Care Time Critical Care Time: No Discharge Plan Discharge Clinical Impression: Pharyngitis Patient Disposition: Home, Self-Care Instructions: Pharyngitis (ED) Additional Instructions: You were seen in the ED today for evaluation of sore throat. You tested negative for covid, flu, rsv, and strep throat. Prednisone as a steroid that has been sent to your pharmacy for you to take for tonsillar swelling. You received a dose in the ED today so take your next dose tomorrow. Cepacol throat lozenges have been sent to your pharmacy to help with throat pain. You may also purchase [id number] chloraseptic spray to numb your throat. I recommend you take 600mg ibuprofen every 6 hours or Tylenol 650mg every 6 hours as needed for pain. If needed, you can alternate these medications so that you take one medication every 3 hours. For example, at noon take ibuprofen, then at 3pm take Tylenol, then at 6pm take ibuprofen. Follow up with your primary care provider this week. If you do not have a PCP, a referral has been provided to you. You may call them to establish care. They will not call you. Return to the Emergency Department if you experience worsening or uncontrolled pain, tongue swelling, difficulty swallowing, change in your voice, difficulty breathing, fevers 100.4?F or greater, recurrent vomiting, development of a rash, or any other concerning symptoms. In the case of emergency, call 911.? Prescriptions: New Cepacol Sore Throat (charlene-men) 15-2.6 mg lozenge 1 toi mucous membrane Q2-4H PRN (Reason: sore throat) Qty: 16 0RF prednisone 20 mg tablet 20 mg PO DAILY 4 Days Qty: 4 0RF No Action cetirizine 10 mg capsule 10 mg PO DAILY PRN (Reason: allergy symptoms) Qty: 30 2RF amoxicillin 500 mg capsule 500 mg PO BID 10 Days Qty: 20 0RF sulfamethoxazole-trimethoprim [Bactrim DS] 800-160 mg tablet 1 tab PO BID Qty: 6 0RF phenazopyridine 100 mg tablet 100 mg PO TID Qty: 6 0RF valacyclovir [Valtrex] 1 gram tablet 1,000 mg PO BID 10 Days Qty: 20 3RF doxycycline monohydrate 100 mg tablet 100 mg PO BID 10 Days Qty: 20 0RF azithromycin [Zithromax Z-Shin] 250 mg tablet See Rx Instructions .ROUTE .COMPLEX Qty: 6 0RF Rx Instructions: take 500 mg today (day 1), then 250 mg for 4 days (days 2-5) prednisone 20 mg tablet 40 mg PO DAILY Qty: 10 0RF ondansetron 4 mg tablet,disintegrating 4 mg PO Q8H PRN (Reason: nausea and vomiting) Qty: 5 0RF nitrofurantoin monohyd/m-cryst [Macrobid] 100 mg capsule 100 mg PO Q12H 5 Days Qty: 10 0RF Rx Instructions: must administer with a meal/food amoxicillin 500 mg capsule 500 mg PO BID 10 Days Qty: 20 0RF ibuprofen 600 mg tablet 600 mg PO Q6H PRN (Reason: pain) Qty: 30 0RF acetaminophen [Tylenol 8 Hour] 650 mg tablet extended release 650 mg PO Q8H PRN (Reason: pain) Qty: 30 0RF [place] [facility] [place] [place]] Stand Alone Forms: Work/School Release Print Language: Mauritanian
[2024-05-14] MEDS: dexAMETHasone sod phosphate 10 MG/ML VIAL IVPUSH (10:20)
[2024-05-14 10:52] LABS: Influenza A PCR NEGATIVE (Negative); Influenza B PCR NEGATIVE (Negative); Resp Syncy Virus RNA Qual PCR NEGATIVE (Negative); SARS COV2 PCR INHOUSE NEGATIVE (Negative)
[2024-05-14 10:54] LABS: IDNOW Serial# 08D9AD1C; Strep A Nucleic Acid Negative (Negative)
[2024-05-14 11:10] VITALS: BP 131/73; PULSE 71; RESP 20; TEMP 36.1; O2SAT 100
== END 2024-05-14 11:16 | disposition home or self-care (01) ==
PROVIDERS: Physician Assistant Medical; Emergency Provider Emergency Medicine
DX: J02.9 Acute pharyngitis, unspecified (principal); R50.9 Fever, unspecified; M79.10 Myalgia, unspecified site; Z03.818 Encounter for observation for suspected exposure to other biological agents ruled out; Z79.899 Other long term (current) drug therapy
CPT/HCPCS: 0241U; 87651; 99283; J1100

== ENCOUNTER 2024-06-15 12:25 | Emergency (ER) | payer MEDICAID, SELFPAY ==
[2024-06-15 12:37] VITALS: BP 105/74; PULSE 99; RESP 16; TEMP 36.6; O2SAT 99; BMI 32.9
--- NOTE | 2024-06-15 12:43 | ED_ITS ---
HPI - General Adult General Chief complaint: General Medical Stated complaint: Sore throat Time Seen by Provider: 06/15/24 12:43 Source: patient and foreign language interpreter Mode of arrival: ambulatory Limitations: language barrier History of Present Illness ED Provider: Rochelle Jara PA-C HPI narrative: This is a 34-year-old female who presents emergency department with complaints of sore throat, body aches, chills since yesterday. Patient reports that 2 days ago she developed chills. She states that yesterday she developed sore throat and body aches. She has had intermittent subjective fevers. She has been taking Tylenol for her symptoms with minimal relief. She denies any headaches, dizziness, blurred vision, chest pain, shortness breath, cough, abdominal pain, nausea, vomiting or diarrhea. Denies any sick contacts. She states that she has been very fatigued, states that she gets very worn out when she is walking from place to place. She is able to eat and drink without difficulty. No other complaints or concerns at this time. MD complaint: Sore throat, body aches, subjective fevers Onset (ago): day(s) Radiation: non-radiation Relieving factors: none Exacerbating factors: none Associated symptoms: fever/chills Treatments prior to arrival: none Related Data Previous Rx's ?Medication ?Instructions ?Recorded amoxicillin 500 mg capsule 500 mg PO BID 10 days #20 caps 08/01/21 cetirizine 10 mg capsule 10 mg PO DAILY PRN allergy 08/01/21 symptoms #30 caps azithromycin 250 mg tablet See Rx Instructions PO .COMPLEX #6 09/08/21 (Zithromax Z-Shin) tabs ondansetron 4 mg disintegrating 4 mg PO Q8H PRN nausea and 09/08/21 tablet vomiting #5 tabs prednisone 20 mg tablet 40 mg (2 x 20 mg) PO DAILY #10 tabs 09/08/21 nitrofurantoin 100 mg PO Q12H 5 days #10 caps 12/17/21 monohydrate/macrocrystals 100 mg capsule (Macrobid) phenazopyridine 100 mg tablet 100 mg PO TID 6 doses #6 tabs 12/20/21 sulfamethoxazole 800 1 tab PO BID #6 tabs 12/20/21 mg-trimethoprim 160 mg tablet (Bactrim DS) doxycycline monohydrate 100 mg 100 mg PO BID 10 days #20 tabs 12/13/22 tablet valacyclovir 1 gram tablet 1,000 mg PO BID Oral herpes 12/13/22 (Valtrex) simplex 10 days #20 tabs acetaminophen 650 mg 650 mg PO Q8H PRN pain #30 tabs 03/27/23 tablet,extended release (Tylenol 8 Hour) amoxicillin 500 mg capsule 500 mg PO BID 10 days #20 caps 03/27/23 ibuprofen 600 mg tablet 600 mg PO Q6H PRN pain #30 tabs 03/27/23 benzocaine 15 mg-menthol 2.6 mg 1 toi mucous membrane Q2-4H PRN 05/14/24 lozenges (Cepacol Sore Throat sore throat #16 ea (benzocaine-menthol)) prednisone 20 mg tablet 20 mg PO DAILY 4 days #4 tabs 05/14/24 acetaminophen 500 mg tablet 500 - 1,000 mg (1 - 2 x 500 mg) PO 06/15/24 (Tylenol Extra Strength) QID PRN pain #30 tabs amoxicillin 500 mg tablet 500 mg PO BID 10 days #20 tabs 06/15/24 ibuprofen 600 mg tablet 600 mg PO Q6H PRN pain #30 tabs 06/15/24 Allergies Allergy/AdvReac Type Severity Reaction Status Date / Time No Known Allergies Allergy Verified 06/15/24 12:37 [No Known Allergies*] Review of Systems 2 Review of Systems: Yes all other systems are reviewed and are negative Constitutional: Constitutional: Reports as per [facility] Past Medical History Attestation statement: The following information was validated with the patient. Medical History No known health problems Social History Social History Alcohol intake: never Patient Tobacco Use Status: Current someday Tobacco user Smoked in Last 30 Days: No Use of substances other than those prescribed or required for medical reasons: No Advance Directives: No Advance Directives Information Provided: No Do you have a plan to hurt others: No Plan Patient : No Physical Exam ED Vital Signs: Vital Signs - 24 hr 06/15/24 12:37 06/15/24 16:45 06/15/24 17:53 Temperature 97.9 F 102.4 F H 99.2 F Pulse Rate 99 94 Respiratory Rate 16 16 Blood Pressure 105/74 114/68 Pulse Oximetry 99 100 Oxygen Delivery Method Room Air Room Air BMI result Body Mass Index 32.9 Const General: cooperative, comfortable and no acute distress Orientation/consciousness: patient oriented x3 Limitations: no limitations HENMT Other: Oropharynx is erythematous, and edematous with exudates noted on the left tonsil. Uvula is midline. No trismus, drooling or dysphonia. Head: Yes normal to inspection, Yes normocephalic and Yes atraumatic Ears: hearing grossly normal bilaterally General nose exam: Normal external nose present Face and sinus: Yes normal facial exam Mouth: moist mucous membranes Eyes General: appearance normal, both eyes and all related structures Eyelids: Yes eyelids normal Conjunctivae: conjunctivae normal Sclerae: sclerae normal Pupils: Equal, round and reactive pupils present EOM: EOMs intact bilaterally Neck Neck: Yes normal visual inspection, Yes full ROM and Yes no lymphadenopathy Lymphatic: no lymphadenopathy noted Chest Chest palpation & inspection: normal inspection of the chest Resp Effort & Inspection: normal respiratory effort and able to speak in complete sentences Auscultation: clear to auscultation bilaterally, no crackles, no rales, no rhonchi and no wheezes Cardio Rate: regular rate Rhythm: regular rhythm Heart sounds: S1 normal heart sound present and S2 normal heart sound present GI Inspection: Yes normal to inspection Skin General skin exam: no rashes or lesions noted Trauma: no lacerations or abrasions Wounds: no wounds Neuro General: patient oriented x3 and moves all extremities Cranial nerves: Yes Equal, round and reactive pupils present Extrem General: Yes normal to inspection Right upper extremity: normal to inspection Left upper extremity: normal to inspection Right lower extremity: normal to inspection Left lower extremity: normal to inspection Course Course Course Narrative: This is a rapid medical exam performed by Malka Alston NP: Additional HPI, ROS, PE not included below will be deferred to primary provider. Patient is a 34-year-old female presenting with sore throat, body aches, chills since yesterday. Plan; strep and viral swabs Reevaluation(s) Reevaluation #1: Patient feeling much better, labs reassuring. She is tolerating oral p.o. without difficulty. Patient given strict return precautions. Patient stable for discharge. Medications Administered Discontinued Medications Generic Name Dose Route Start Last Admin Trade Name Paolo PRN Reason Stop Dose Admin Acetaminophen 975 mg 06/15/24 16:55 06/15/24 17:03 Acetaminophen 325 Mg Tablet PO 06/15/24 16:56 975 mg ONCE ONE Administration Dexamethasone Sodium Phosphate 10 mg 06/15/24 17:36 06/15/24 17:56 Dexamethasone Sod Phosphate 10 Mg/Ml Vial PO 06/15/24 17:37 10 mg ONCE ONE Administration Sodium Chloride 1,000 mls @ 999 mls/hr 06/15/24 17:37 06/15/24 17:56 Ns IV 06/15/24 18:37 999 mls/hr .Q1H1M ONE Administration Medical Decision Making Medical Decision Making [facility] Narrative: This is a 34-year-old female who presents emergency department with complaints of sore throat, body aches, and fevers since yesterday. On arrival, vital signs within normal limits. Repeat vitals revealing a temperature of a 102.4? F. she has not had a cough, abdominal pain, urinary symptoms. She reports fatigue over the last several days as well. Oropharynx with tonsillar hypertrophy and exudates noted, consistent with tonsillitis like picture. Will medicate with Tylenol, as well as fluids and test for mono. 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 Differential Diagnosis Differential Diagnoses: The differential diagnosis associated with the presentation includes Pharyngitis, viral URI, strep pharyngitis, pneumonia, COVID, flu, [employer]BER, mono Lab Data [facility] Lab Attestation statement: I reviewed the patient's lab results. Patient with leukocytosis at 14.2, chemistry within normal limits. Patient tested negative for flu, RSV, COVID, strep, and mono. 06/15/24 17:55 06/15/24 17:55 Labs: Lab Results 06/15/24 06/15/24 Range/Units 13:29 17:55 WBC 14.2 H (4.8-10.8) X10*3/uL RBC 4.47 (4.20-5.50) X10*6/uL Hgb 13.8 (12.0-16.0) g/dl Hct 40.6 (37.0-47.0) % MCV 90.8 (80.0-98.0) fL MCH 30.9 (27.0-33.0) pg MCHC 34.0 (31.0-35.0) g/dl RDW 12.6 (11.0-16.0) % Plt Count 252 (160-400) X10*3/uL MPV 9.9 (9.4-12.3) fL Immature Gran % (Auto) 0.6 H (0.0-0.4) % Neut % (Auto) 71.4 (45-73) % Lymph % (Auto) 14.4 L (20-40) % Donley % (Auto) 13.2 H (2-11) % Eos % (Auto) 0.2 (0-4) % Baso % (Auto) 0.2 (0-2) % Lymph # (Auto) 2.1 (1.2-4.9) X10*3/uL Donley # (Auto) 1.9 H (0.1-1.2) X10*3/uL Eos # (Auto) 0.0 (0.0-0.4) X10*3/uL Baso # (Auto) 0.0 (0.0-0.2) X10*3/uL Abs Immat Gran (auto) 0.08 H (0.00-0.03) X10*3/uL Absolute Neuts (auto) 10.2 H (2.0-8.3) x10*3/uL Absolute Nucleated RBC 0.000 (0.0-0.012) X10*3/uL Nucleated RBC % (auto) 0.0 (0.0-0.2) /100WBC Smear Tech's Comments VERIFIED Sodium 138 (135-145) mmol/L Potassium 3.5 (3.3-5.1) mmol/L Chloride 103 (96-108) mmol/L Carbon Dioxide 25 (22-29) mmol/L Anion Gap 14 (12-20) BUN 10 (9-16) mg/dL Creatinine 0.88 (0.5-1.4) mg/dL Estim Creat Clear Calc 86.4 Estimated GFR > 60 Random Glucose 102 (60-115) mg/dL Calcium 9.6 (8.4-10.2) mg/dL Total Bilirubin 0.5 (0.0-1.0) mg/dL AST 22 (5-31) U/L ALT 23 (0-31) U/L Alkaline Phosphatase 76 (39-117) U/L Total Protein 8.1 H (6.5-8.0) g/dL Albumin 4.0 (3.5-5.0) g/dL Monoscreen Negative (Negative) Influenza Type A (PCR) NEGATIVE (Negative) Influenza Type B (PCR) NEGATIVE (Negative) RSV RNA Qual (PCR) NEGATIVE (Negative) SARS-CoV-2 RNA (RT-PCR) NEGATIVE (Negative) S. pyogenes GrpA DOMINIC Negative (Negative) Radiology Impression Discussion of test interpretation with radiology: I have reviewed the radiologist's reading. External Record Review External record reviewed: Inpatient record, Office record, Outpatient record, Prior outpatient labs, Prior outpatient radiology, Primary care record and Outside ED record Discharge Plan Discharge Clinical Impression: Acute tonsillitis Patient Disposition: Home, Self-Care Instructions: Tonsillitis (ED) Additional Instructions: You were seen in the emergency department due to sore throat, body aches, and fevers. You were given steroids, as well as Tylenol. You tested negative for COVID, flu, RSV, and mono. Your blood work is indicative of an infection. We are going to treat you for throat infection. Please take prescribed antibiotic as directed, finish the entire course even if your symptoms improve. Please drink plenty of fluids get plenty of rest. Saltwater gargles, hot tea with honey, popsicles can also help with your symptoms. If any new or worsening symptoms occur including but not limited to inability to swallow, chest pain, shortness of breath, please return for re-evaluation. I am also giving your referral to OBGYN as well as primary care for generalized follow-up. You to call to make appointments. Prescriptions: New acetaminophen [Tylenol Extra Strength] 500 mg tablet 500 - 1,000 mg PO QID PRN (Reason: pain) Qty: 30 0RF ibuprofen 600 mg tablet 600 mg PO Q6H PRN (Reason: pain) Qty: 30 0RF amoxicillin 500 mg tablet 500 mg PO BID 10 Days Qty: 20 0RF No Action cetirizine 10 mg capsule 10 mg PO DAILY PRN (Reason: allergy symptoms) Qty: 30 2RF amoxicillin 500 mg capsule 500 mg PO BID 10 Days Qty: 20 0RF sulfamethoxazole-trimethoprim [Bactrim DS] 800-160 mg tablet 1 tab PO BID Qty: 6 0RF phenazopyridine 100 mg tablet 100 mg PO TID Qty: 6 0RF valacyclovir [Valtrex] 1 gram tablet 1,000 mg PO BID 10 Days Qty: 20 3RF doxycycline monohydrate 100 mg tablet 100 mg PO BID 10 Days Qty: 20 0RF azithromycin [Zithromax Z-Shin] 250 mg tablet See Rx Instructions .ROUTE .COMPLEX Qty: 6 0RF Rx Instructions: take 500 mg today (day 1), then 250 mg for 4 days (days 2-5) prednisone 20 mg tablet 40 mg PO DAILY Qty: 10 0RF ondansetron 4 mg tablet,disintegrating 4 mg PO Q8H PRN (Reason: nausea and vomiting) Qty: 5 0RF nitrofurantoin monohyd/m-cryst [Macrobid] 100 mg capsule 100 mg PO Q12H 5 Days Qty: 10 0RF Rx Instructions: must administer with a meal/food amoxicillin 500 mg capsule 500 mg PO BID 10 Days Qty: 20 0RF ibuprofen 600 mg tablet 600 mg PO Q6H PRN (Reason: pain) Qty: 30 0RF acetaminophen [Tylenol 8 Hour] 650 mg tablet extended release 650 mg PO Q8H PRN (Reason: pain) Qty: 30 0RF Cepacol Sore Throat (charlene-men) 15-2.6 mg lozenge 1 toi mucous membrane Q2-4H PRN (Reason: sore throat) Qty: 16 0RF prednisone 20 mg tablet 20 mg PO DAILY 4 Days Qty: 4 0RF Referrals: [facility] [Provider Group] Center,[facility] [Physician] - Interventions: ED Discharge Assessment Last Done: 06/15/24 19:51 Discharge Date/Time: 06/15/24 19:50 Print Language: Armenian
[2024-06-15 13:45] LABS: IDNOW Serial# 08D9AD1C; Strep A Nucleic Acid Negative (Negative)
[2024-06-15 14:14] LABS: Influenza A PCR NEGATIVE (Negative); Influenza B PCR NEGATIVE (Negative); Resp Syncy Virus RNA Qual PCR NEGATIVE (Negative); SARS COV2 PCR INHOUSE NEGATIVE (Negative)
[2024-06-15 16:45] VITALS: BP 114/68; PULSE 94; RESP 16; TEMP 39.1; O2SAT 100
[2024-06-15] MEDS: Acetaminophen 325 MG TABLET 975 MG PO (17:03)
[2024-06-15 17:53] VITALS: TEMP 37.3
[2024-06-15] MEDS: dexAMETHasone sod phosphate 10 MG/ML VIAL PO (17:56)
[2024-06-15] MEDS: 0.9 % Sodium Chloride 1,000 ML 999 ML IV (17:56)
[2024-06-15 18:00] LABS: Basophils Percent Auto 0.2 % (0-2); Eosinophils Percent Auto 0.2 % (0-4); Hematocrit 40.6 % (37.0-47.0); Hemoglobin 13.8 g/dl (12.0-16.0); Imm Gran Abs Auto 0.08 X10*3/uL (0.00-0.03); Imm Gran Pct Auto 0.6 % (0.0-0.4); Lymphocytes Absolute Auto 2.1 X10*3/uL (1.2-4.9); Lymphocytes Percent Auto 14.4 % (20-40); MANUAL DIFF FLAG SCAN; Mean Corpuscular Hemoglobin 30.9 pg (27.0-33.0); Mean Corpuscular Volume 90.8 fL (80.0-98.0); Mean Platelet Volume 9.9 fL (9.4-12.3); Monocytes Absolute Auto 1.9 X10*3/uL (0.1-1.2); Monocytes Percent Auto 13.2 % (2-11); Neutrophils Absolute Auto 10.2 x10*3/uL (2.0-8.3); Neutrophils Percent Auto 71.4 % (45-73); Platelet Count 252 X10*3/uL (160-400); Red Blood Count 4.47 X10*6/uL (4.20-5.50); Red Cell Distribution Width 12.6 % (11.0-16.0); SCAN SMEAR FLAG 1; White Blood Count 14.2 X10*3/uL (4.8-10.8)
[2024-06-15 18:11] LABS: Monotest Negative (Negative)
[2024-06-15 18:14] LABS: Alanine Aminotransferase 23 U/L (0-31); Alkaline Phosphatase 76 U/L (39-117); Anion Gap 14 (12-20); Aspartate Amino Transferase 22 U/L (5-31); Bilirubin Total 0.5 mg/dL (0.0-1.0); Blood Urea Nitrogen 10 mg/dL (9-16); Calcium 9.6 mg/dL (8.4-10.2); Carbon Dioxide 25 mmol/L (22-29); Chloride 103 mmol/L (96-108); Creatinine Clr Calc Pharmacy 86.4; Estimated Glomerular Filt Rate > 60; Glucose Random 102 mg/dL (60-115); Potassium 3.5 mmol/L (3.3-5.1); Sodium 138 mmol/L (135-145); Total Protein 8.1 g/dL (6.5-8.0)
[2024-06-15 18:38] LABS: SLIDE REVIEW VERIFIED
[2024-06-15 19:09] VITALS: BP 117/68; PULSE 97; RESP 16; TEMP 36.8; O2SAT 98
[2024-06-15 19:51] VITALS: BP 117/68; PULSE 97; RESP 16; TEMP 36.8; O2SAT 98
== END 2024-06-15 19:50 | disposition home or self-care (01) ==
PROVIDERS: Emergency Medicine; Physician Assistant Medical; Emergency Provider Internal Medicine
DX: J03.90 Acute tonsillitis, unspecified (principal); R52 Pain, unspecified; R50.9 Fever, unspecified; Z79.899 Other long term (current) drug therapy; Z03.818 Encounter for observation for suspected exposure to other biological agents ruled out
CPT/HCPCS: 0241U; 36415; 80053; 85025; 86308; 87651; 99283; 99284; J1100

== ENCOUNTER 2024-12-20 13:19 | Emergency (ER) | payer MEDICAID, SELFPAY ==
[2024-12-20 13:26] VITALS: BP 124/56; PULSE 79; RESP 18; TEMP 36.6; O2SAT 96; BMI 33.3
[2024-12-20 14:27] LABS: IDNOW Serial# 58CA691E; Strep A Nucleic Acid Positive (Negative)
--- NOTE | 2024-12-20 14:33 | ED.URI ---
HPI - URI/Sore Throat General Chief Complaint: Upper Respiratory Symptoms Stated Complaint: sore throat blister on lips Time Seen by Provider: 12/20/24 14:29 Source: family Mode of arrival: ambulatory Limitations: no limitations History of Present Illness ED Provider: odalis varela np HPI Narrative: patient is a 34-year-old female who presents emergency department for evaluation she admits to 3 days with a sore throat with mild painful swallowing but no difficulty, and a blister to her left upper lip that started 2 days ago endorsing notable treatment with Abreva and resolution of pain. Endorses a history of herpes simplex virus. Related Data Previous Rx's ?Medication ?Instructions ?Recorded amoxicillin 500 mg capsule 500 mg PO BID 10 days #20 caps 08/01/21 cetirizine 10 mg capsule 10 mg PO DAILY PRN allergy 08/01/21 symptoms #30 caps azithromycin 250 mg tablet See Rx Instructions PO .COMPLEX #6 09/08/21 (Zithromax Z-Shin) tabs ondansetron 4 mg disintegrating 4 mg PO Q8H PRN nausea and 09/08/21 tablet vomiting #5 tabs prednisone 20 mg tablet 40 mg (2 x 20 mg) PO DAILY #10 tabs 09/08/21 nitrofurantoin 100 mg PO Q12H 5 days #10 caps 12/17/21 monohydrate/macrocrystals 100 mg capsule (Macrobid) phenazopyridine 100 mg tablet 100 mg PO TID 6 doses #6 tabs 12/20/21 sulfamethoxazole 800 1 tab PO BID #6 tabs 12/20/21 mg-trimethoprim 160 mg tablet (Bactrim DS) doxycycline monohydrate 100 mg 100 mg PO BID 10 days #20 tabs 12/13/22 tablet valacyclovir 1 gram tablet 1,000 mg PO BID Oral herpes 12/13/22 (Valtrex) simplex 10 days #20 tabs acetaminophen 650 mg 650 mg PO Q8H PRN pain #30 tabs 03/27/23 tablet,extended release (Tylenol 8 Hour) amoxicillin 500 mg capsule 500 mg PO BID 10 days #20 caps 03/27/23 ibuprofen 600 mg tablet 600 mg PO Q6H PRN pain #30 tabs 03/27/23 benzocaine 15 mg-menthol 2.6 mg 1 toi mucous membrane Q2-4H PRN 05/14/24 lozenges (Cepacol Sore Throat sore throat #16 ea (benzocaine-menthol)) prednisone 20 mg tablet 20 mg PO DAILY 4 days #4 tabs 05/14/24 acetaminophen 500 mg tablet 500 - 1,000 mg (1 - 2 x 500 mg) PO 06/15/24 (Tylenol Extra Strength) QID PRN pain #30 tabs amoxicillin 500 mg tablet 500 mg PO BID 10 days #20 tabs 06/15/24 ibuprofen 600 mg tablet 600 mg PO Q6H PRN pain #30 tabs 06/15/24 amoxicillin 500 mg capsule 500 mg PO BID #20 caps 12/20/24 valacyclovir 1 gram tablet 1,000 mg PO BID #14 tabs 12/20/24 Allergies Allergy/AdvReac Type Severity Reaction Status Date / Time No Known Allergies Allergy Verified 12/20/24 13:29 [No Known Allergies*] Review of Systems Review of Systems: Yes all other systems are reviewed and are negative PMFSH Past Medical History Attestation statement: The following information was validated with the patient. Source: old records reviewed Medical History No known health problems Social History Social History Alcohol intake: never Patient Tobacco Use Status: Current someday Tobacco user Physical Exam Vital Signs: Vital Signs: Last Vital Signs Temp 97.9 F 12/20/24 13:26 Pulse 79 12/20/24 13:26 Resp 18 12/20/24 13:26 BP 124/56 L 12/20/24 13:26 Pulse Ox 96 12/20/24 13:26 O2 Del Method Room Air 12/20/24 13:26 BMI result Body Mass Index 33.3 Appearance: Alert.?Oriented to person, place and time. No acute distress.?Normal affect. ENT: TM normal bilaterally. Pharynx erythematous 2+ tonsillar hypertrophy bilaterally no exudates. Uvula is midline. No trismus. No drooling. No palatal petechiae?? Neck: Normal inspection.? Neck supple.??No cervical adenopathy CVS: Heart sounds normal. Normal heart rate and rhythm.? Pulses normal.?? Respiratory: No respiratory distress.? Lung sounds clear to auscultation bilaterally?? Skin: Skin warm and dry.? Normal skin color.? ? Neuro: Moves all extremities spontaneously. Sensation intact bilaterally. Ambulates with normal steady gait. Medical Decision Making Medical Decision Making [facility] Narrative: Patient is a 34-year-old female who presents C the emergency department for evaluation of sore throat and HSV outbreak to the left upper lip. Group a strep testing is positive, examination that consistent with RPA/ [employer] L[employer]. Overall she isWell-appearing, nontoxic, afebrile, no tachycardia or tachypnea/hypoxia. Speaking clear full sentences, ambulatory with steady gait. sent prescription for amoxicillin and valacyclovir to patient's pharmacy. Discussed conservative treatment including rest, hydration, Tylenol/ibuprofen as needed for fever and body aches, saline nasal spray, humidifier, [id number] cold medication. Advised to follow-up with primary care provider as needed, discussed reasons to return back to the emergency department. All questions were answered. Patient discharged home in stable condition. Provided with a return to work/school note. Differential Diagnosis Differential Diagnoses: The differential diagnosis associated with the presentation includes ( See narrative above) Admission/Observation Consideration of admission/observation: Escalation of care including admission/observation considered ( see narrative above) Lab Data [facility] Lab Attestation statement: I reviewed the patient's lab results. ( see narrative above) Labs: Lab Results 12/20/24 Range/Units 13:35 S. pyogenes GrpA DOMINIC Positive A (Negative) Prescription Management I considered prescription management with: Pain Medication ( acetaminophen/ibuprofen) Discharge Plan Discharge Clinical Impression: Oral herpes simplex infection, Acute streptococcal pharyngitis Patient Disposition: Home, Self-Care Instructions: Strep Throat (ED), Oral Herpes Simplex Virus Infections (ED) Additional Instructions: 2 medications or being sent to your pharmacy. One is for amoxicillin in antibiotic to treat the strep throat infection take this twice daily for 10 days. You should remain out of work for the next 24 hours. The other is valacyclovir or Valtrex 1 g twice daily for 7 days for treatment of the herpes infections in the lip, you may also apply the Abreva ointment as you have been. Return with any new or worsening symptoms or concerns Prescriptions: New amoxicillin 500 mg capsule 500 mg PO BID Qty: 20 0RF valacyclovir 1 gram tablet 1,000 mg PO BID Qty: 14 0RF No Action cetirizine 10 mg capsule 10 mg PO DAILY PRN (Reason: allergy symptoms) Qty: 30 2RF amoxicillin 500 mg capsule 500 mg PO BID 10 Days Qty: 20 0RF sulfamethoxazole-trimethoprim [Bactrim DS] 800-160 mg tablet 1 tab PO BID Qty: 6 0RF phenazopyridine 100 mg tablet 100 mg PO TID Qty: 6 0RF valacyclovir [Valtrex] 1 gram tablet 1,000 mg PO BID 10 Days Qty: 20 3RF doxycycline monohydrate 100 mg tablet 100 mg PO BID 10 Days Qty: 20 0RF azithromycin [Zithromax Z-Shin] 250 mg tablet See Rx Instructions .ROUTE .COMPLEX Qty: 6 0RF Rx Instructions: take 500 mg today (day 1), then 250 mg for 4 days (days 2-5) prednisone 20 mg tablet 40 mg PO DAILY Qty: 10 0RF ondansetron 4 mg tablet,disintegrating 4 mg PO Q8H PRN (Reason: nausea and vomiting) Qty: 5 0RF nitrofurantoin monohyd/m-cryst [Macrobid] 100 mg capsule 100 mg PO Q12H 5 Days Qty: 10 0RF Rx Instructions: must administer with a meal/food amoxicillin 500 mg capsule 500 mg PO BID 10 Days Qty: 20 0RF ibuprofen 600 mg tablet 600 mg PO Q6H PRN (Reason: pain) Qty: 30 0RF acetaminophen [Tylenol 8 Hour] 650 mg tablet extended release 650 mg PO Q8H PRN (Reason: pain) Qty: 30 0RF Cepacol Sore Throat (charlene-men) 15-2.6 mg lozenge 1 toi mucous membrane Q2-4H PRN (Reason: sore throat) Qty: 16 0RF prednisone 20 mg tablet 20 mg PO DAILY 4 Days Qty: 4 0RF acetaminophen [Tylenol Extra Strength] 500 mg tablet 500 - 1,000 mg PO QID PRN (Reason: pain) Qty: 30 0RF ibuprofen 600 mg tablet 600 mg PO Q6H PRN (Reason: pain) Qty: 30 0RF amoxicillin 500 mg tablet 500 mg PO BID 10 Days Qty: 20 0RF Referrals: Physician,None [Physician] - Print Language: Latvian
[2024-12-20 14:56] VITALS: BP 124/56; PULSE 79; RESP 18; TEMP 36.6; O2SAT 96
== END 2024-12-20 14:57 | disposition home or self-care (01) ==
PROVIDERS: Emergency Provider Emergency Medicine
DX: J02.0 Streptococcal pharyngitis (principal)
CPT/HCPCS: 87651; 99282; 99283

== ENCOUNTER 2025-01-09 08:59 | Emergency (ER) | payer MEDICAID, SELFPAY ==
[2025-01-09 09:08] VITALS: BP 131/77; PULSE 82; RESP 16; TEMP 36.4; O2SAT 98; BMI 33.7
[2025-01-09 09:21] LABS: MANUAL DIFF FLAG NO
[2025-01-09 09:25] LABS: Basophils Percent Auto 0.6 % (0-2); Eosinophils Absolute Auto 0.2 X10*3/uL (0.0-0.4); Eosinophils Percent Auto 3.1 % (0-4); Hematocrit 40.8 % (37.0-47.0); Hemoglobin 13.8 g/dl (12.0-16.0); Imm Gran Abs Auto 0.02 X10*3/uL (0.00-0.03); Imm Gran Pct Auto 0.3 % (0.0-0.4); Lymphocytes Absolute Auto 2.5 X10*3/uL (1.2-4.9); Lymphocytes Percent Auto 35.6 % (20-40); Mean Corpuscular HGB Conc 33.8 g/dl (31.0-35.0); Mean Corpuscular Hemoglobin 31.9 pg (27.0-33.0); Mean Corpuscular Volume 94.4 fL (80.0-98.0); Mean Platelet Volume 10.3 fL (9.4-12.3); Monocytes Absolute Auto 0.4 X10*3/uL (0.1-1.2); Neutrophils Absolute Auto 3.8 x10*3/uL (2.0-8.3); Neutrophils Percent Auto 54.4 % (45-73); Platelet Count 278 X10*3/uL (160-400); Red Blood Count 4.32 X10*6/uL (4.20-5.50); Red Cell Distribution Width 12.7 % (11.0-16.0)
[2025-01-09 09:44] LABS: Alanine Aminotransferase 22 U/L (0-31); Anion Gap 11 (12-20); Aspartate Amino Transferase 31 U/L (5-31); Bilirubin Total 0.2 mg/dL (0.0-1.0); Blood Urea Nitrogen 14 mg/dL (9-16); Calcium 9.7 mg/dL (8.4-10.2); Carbon Dioxide 22 mmol/L (22-29); Chloride 110 mmol/L (96-108); Creatinine Clr Calc Pharmacy 104.2; Estimated Glomerular Filt Rate > 60; Glucose Random 114 mg/dL (60-115); Potassium 4.1 mmol/L (3.3-5.1); Sodium 139 mmol/L (135-145); Total Protein 7.4 g/dL (6.5-8.0)
[2025-01-09 09:54] LABS: Alkaline Phosphatase 52 U/L (39-117)
[2025-01-09 09:59] LABS: Influenza A PCR NEGATIVE (Negative); Influenza B PCR NEGATIVE (Negative); Resp Syncy Virus RNA Qual PCR NEGATIVE (Negative); SARS COV2 PCR INHOUSE NEGATIVE (Negative)
--- NOTE | 2025-01-09 10:01 | ED_ITS ---
HPI - General Adult General Chief complaint: Nausea/Vomiting/Diarrhea Stated complaint: sore throat Time Seen by Provider: 01/09/25 09:45 Source: patient Mode of arrival: ambulatory Limitations: no limitations History of Present Illness ED Provider: BARON FISCHER narrative: 34 year old female without significant PMHx presents to the ED due to general malaise, nausea, vomiting, diarrhea, and sore throat that started last night. Patient states she was also experiencing a headache last night and took ibuprofen for pain management without effect. She has a mild sore throat and feels as if she has phlegm in the throat. She is unaware if she has had fever or not. She states she has had a COVID contact from a coworker at work this week. She denies bloody/bilious vomiting, black or bloody stool, visual changes, photophobia. MD complaint: vomiting/diarrhea Onset (ago): day(s) (1 day ) Location: abdomen (nausea, vomiting, diarrhea) Radiation: non-radiation Severity: moderate Quality: constant Pain Consistency: constant Relieving factors: none Exacerbating factors: none Associated symptoms: headaches, malaise, nausea/vomiting and other (diarrhea ) Treatments prior to arrival: NSAID (ibuprofen last night) Related Data Previous Rx's ?Medication ?Instructions ?Recorded amoxicillin 500 mg capsule 500 mg PO BID 10 days #20 caps 08/01/21 cetirizine 10 mg capsule 10 mg PO DAILY PRN allergy 08/01/21 symptoms #30 caps azithromycin 250 mg tablet See Rx Instructions PO .COMPLEX #6 09/08/21 (Zithromax Z-Shin) tabs ondansetron 4 mg disintegrating 4 mg PO Q8H PRN nausea and 09/08/21 tablet vomiting #5 tabs prednisone 20 mg tablet 40 mg (2 x 20 mg) PO DAILY #10 tabs 09/08/21 nitrofurantoin 100 mg PO Q12H 5 days #10 caps 12/17/21 monohydrate/macrocrystals 100 mg capsule (Macrobid) phenazopyridine 100 mg tablet 100 mg PO TID 6 doses #6 tabs 12/20/21 sulfamethoxazole 800 1 tab PO BID #6 tabs 12/20/21 mg-trimethoprim 160 mg tablet (Bactrim DS) doxycycline monohydrate 100 mg 100 mg PO BID 10 days #20 tabs 12/13/22 tablet valacyclovir 1 gram tablet 1,000 mg PO BID Oral herpes 12/13/22 (Valtrex) simplex 10 days #20 tabs acetaminophen 650 mg 650 mg PO Q8H PRN pain #30 tabs 03/27/23 tablet,extended release (Tylenol 8 Hour) amoxicillin 500 mg capsule 500 mg PO BID 10 days #20 caps 03/27/23 ibuprofen 600 mg tablet 600 mg PO Q6H PRN pain #30 tabs 03/27/23 benzocaine 15 mg-menthol 2.6 mg 1 toi mucous membrane Q2-4H PRN 05/14/24 lozenges (Cepacol Sore Throat sore throat #16 ea (benzocaine-menthol)) prednisone 20 mg tablet 20 mg PO DAILY 4 days #4 tabs 05/14/24 acetaminophen 500 mg tablet 500 - 1,000 mg (1 - 2 x 500 mg) PO 06/15/24 (Tylenol Extra Strength) QID PRN pain #30 tabs amoxicillin 500 mg tablet 500 mg PO BID 10 days #20 tabs 06/15/24 ibuprofen 600 mg tablet 600 mg PO Q6H PRN pain #30 tabs 06/15/24 amoxicillin 500 mg capsule 500 mg PO BID #20 caps 12/20/24 valacyclovir 1 gram tablet 1,000 mg PO BID #14 tabs 12/20/24 ondansetron 4 mg disintegrating 4 mg PO Q8H PRN nausea and 01/09/25 tablet vomiting #20 tabs Allergies Allergy/AdvReac Type Severity Reaction Status Date / Time No Known Allergies Allergy Verified 01/09/25 09:08 [No Known Allergies*] Review of Systems 2 Review of Systems: Constitutional : No Fever, No Chills, No Fatigue ENT/Mouth : pos sore throat, No Rhinorrhea Eyes: No Eye Pain, No Swelling, No Redness Cardiovascular : No Chest Pain, No SOB, No Dyspnea on Exertion Respiratory : No Cough, No Sputum Gastrointestinal : Pos Nausea, Pos Vomiting, pos Diarrhea, No abdominal Pain Genitourinary : No Dysuria, No Urinary Frequency, No Hematuria, Musculoskeletal : No joint pain, No Myalgias, No Joint Swelling Skin : No Skin Lesions, No rash Neuro : No Weakness, No Numbness, No Dizziness, positive Headache Psych : No Anxiety/Panic, No Depression Heme/Lymph: No Bruising, No Bleeding,No Lymphadenopathy Endocrine : No Polyuria, No Polydipsia All other systems reviewed and are negative Yes all other systems are reviewed and are negative [facility] Past Medical History Medical History No known health problems Social History Social History Alcohol intake: never Patient Tobacco Use Status: Current someday Tobacco user Advance Directives: No Advance Directives Information Provided: Yes Physical Exam ED Vital Signs: Vital Signs - 24 hr 01/09/25 09:08 Temperature 97.5 F Pulse Rate 82 Respiratory Rate 16 Blood Pressure 131/77 Pulse Oximetry 98 Oxygen Delivery Method Room Air BMI result Body Mass Index 33.7 Appearance: Alert. Oriented X3. No acute distress. Eyes: Pupils equal, round and reactive to light. ENT: Pharynx normal. Neck: Normal inspection. Neck supple. CVS: Normal heart rate and rhythm. Pulses normal. Respiratory: No respiratory distress. Breath sounds normal. Abdomen: Soft and nontender. Skin: Skin warm and dry. Normal skin color. Normal skin turgor. Extremities: No lower extremity edema. No calf ttp Neuro: Oriented X 3. No motor deficit. No sensory deficit. CN2-12 intact Medications Administered Discontinued Medications Generic Name Dose Route Start Last Admin Trade Name Jonathanq PRN Reason Stop Dose Admin Acetaminophen 975 mg 01/09/25 09:59 01/09/25 10:06 Acetaminophen 325 Mg Tablet PO 01/09/25 10:00 975 mg ONCE ONE Administration Ondansetron HCl 4 mg 01/09/25 09:59 01/09/25 10:06 Ondansetron Odt 4 Mg Tab.Rapdis TRANSLINGU 01/09/25 10:00 4 mg ONCE ONE Administration Medical Decision Making Medical Decision Making MDM Narrative: 34 year old female without significant PMHx presents to the ED due to general malaise, nausea, vomiting, diarrhea, and sore throat that started last night. Patient states she was also experiencing a headache last night and took ibuprofen for pain management without effect. She has a mild sore throat and feels as if she has phlegm in the throat. She states she has had a COVID contact from a coworker at work this week. She denies bloody/bilious vomiting, black or bloody stool, visual changes, photophobia. Patients Vital signs are stable without fever. She is in no acute distress and is non toxic appearing. Patients labs are unremarkable. Patients swabs for COVID/flu/RSV are negative. She was started on odansetron for nausea and 975mg of tylenol for pain management. Patients illness is viral in etiology. Differential Diagnosis Differential Diagnoses: The differential diagnosis associated with the presentation includes Covid, flu, RSV, viral illness Admission/Observation Consideration of admission/observation: Escalation of care including admission/observation considered labs reasuring, exam benign, not toxic, VS stable Lab Data [facility] Lab Attestation statement: I reviewed the patient's lab results. 01/09/25 09:16 01/09/25 09:16 Labs: Lab Results 01/09/25 Range/Units 09:16 WBC 7.0 (4.8-10.8) X10*3/uL RBC 4.32 (4.20-5.50) X10*6/uL Hgb 13.8 (12.0-16.0) g/dl Hct 40.8 (37.0-47.0) % MCV 94.4 (80.0-98.0) fL MCH 31.9 (27.0-33.0) pg MCHC 33.8 (31.0-35.0) g/dl RDW 12.7 (11.0-16.0) % Plt Count 278 (160-400) X10*3/uL MPV 10.3 (9.4-12.3) fL Immature Gran % (Auto) 0.3 (0.0-0.4) % Neut % (Auto) 54.4 (45-73) % Lymph % (Auto) 35.6 (20-40) % Sutton % (Auto) 6.0 (2-11) % Eos % (Auto) 3.1 (0-4) % Baso % (Auto) 0.6 (0-2) % Lymph # (Auto) 2.5 (1.2-4.9) X10*3/uL Sutton # (Auto) 0.4 (0.1-1.2) X10*3/uL Eos # (Auto) 0.2 (0.0-0.4) X10*3/uL Baso # (Auto) 0.0 (0.0-0.2) X10*3/uL Abs Immat Gran (auto) 0.02 (0.00-0.03) X10*3/uL Absolute Neuts (auto) 3.8 (2.0-8.3) x10*3/uL Absolute Nucleated RBC 0.000 (0.0-0.012) X10*3/uL Nucleated RBC % (auto) 0.0 (0.0-0.2) /100WBC Sodium 139 (135-145) mmol/L Potassium 4.1 (3.3-5.1) mmol/L Chloride 110 H (96-108) mmol/L Carbon Dioxide 22 (22-29) mmol/L Anion Gap 11 L (12-20) BUN 14 (9-16) mg/dL Creatinine 0.74 (0.5-1.4) mg/dL Estim Creat Clear Calc 104.2 Estimated GFR > 60 Random Glucose 114 (60-115) mg/dL Calcium 9.7 (8.4-10.2) mg/dL Total Bilirubin 0.2 (0.0-1.0) mg/dL AST 31 (5-31) U/L ALT 22 (0-31) U/L Alkaline Phosphatase 52 (39-117) U/L Total Protein 7.4 (6.5-8.0) g/dL Albumin 4.0 (3.5-5.0) g/dL Influenza Type A (PCR) NEGATIVE (Negative) Influenza Type B (PCR) NEGATIVE (Negative) RSV RNA Qual (PCR) NEGATIVE (Negative) SARS-CoV-2 RNA (RT-PCR) NEGATIVE (Negative) External Record Review External record reviewed: Inpatient record Prescription Management I considered prescription management with: Pain Medication (975mg tylenol ) and Other (4mg ondansetron ) Discharge Plan Discharge Clinical Impression: Viral illness Patient Disposition: Home, Self-Care Instructions: Viral Syndrome (ED) Additional Instructions: You were evaluated in the ED for nausea, vomiting, diarrhea. Your vital signs are stable with no evidence of fever. Your lab work was reassuring. Your COVID/flu/RSV swabs were negative. Although these swabs were negative there are many different viruses and your symptoms are consistent with a viral infection. You can alternate Motrin and tylenol every 4 hours for pain management. Stay hydrated by drinking plenty of fluids. Eat a bland diet (bananas, rice, apples, toast) as tolerated. Please return to the ED if you have fever over 100.4, increase in vomiting, abdominal pain, increase in frequency of diarrhea or any other symptoms or concerns Prescriptions: New ondansetron 4 mg tablet,disintegrating 4 mg PO Q8H PRN (Reason: nausea and vomiting) Qty: 20 0RF No Action cetirizine 10 mg capsule 10 mg PO DAILY PRN (Reason: allergy symptoms) Qty: 30 2RF amoxicillin 500 mg capsule 500 mg PO BID 10 Days Qty: 20 0RF sulfamethoxazole-trimethoprim [Bactrim DS] 800-160 mg tablet 1 tab PO BID Qty: 6 0RF phenazopyridine 100 mg tablet 100 mg PO TID Qty: 6 0RF valacyclovir [Valtrex] 1 gram tablet 1,000 mg PO BID 10 Days Qty: 20 3RF doxycycline monohydrate 100 mg tablet 100 mg PO BID 10 Days Qty: 20 0RF azithromycin [Zithromax Z-Shin] 250 mg tablet See Rx Instructions .ROUTE .COMPLEX Qty: 6 0RF Rx Instructions: take 500 mg today (day 1), then 250 mg for 4 days (days 2-5) prednisone 20 mg tablet 40 mg PO DAILY Qty: 10 0RF ondansetron 4 mg tablet,disintegrating 4 mg PO Q8H PRN (Reason: nausea and vomiting) Qty: 5 0RF nitrofurantoin monohyd/m-cryst [Macrobid] 100 mg capsule 100 mg PO Q12H 5 Days Qty: 10 0RF Rx Instructions: must administer with a meal/food amoxicillin 500 mg capsule 500 mg PO BID 10 Days Qty: 20 0RF ibuprofen 600 mg tablet 600 mg PO Q6H PRN (Reason: pain) Qty: 30 0RF acetaminophen [Tylenol 8 Hour] 650 mg tablet extended release 650 mg PO Q8H PRN (Reason: pain) Qty: 30 0RF Cepacol Sore Throat (charlene-men) 15-2.6 mg lozenge 1 toi mucous membrane Q2-4H PRN (Reason: sore throat) Qty: 16 0RF prednisone 20 mg tablet 20 mg PO DAILY 4 Days Qty: 4 0RF amoxicillin 500 mg capsule 500 mg PO BID Qty: 20 0RF valacyclovir 1 gram tablet 1,000 mg PO BID Qty: 14 0RF acetaminophen [Tylenol Extra Strength] 500 mg tablet 500 - 1,000 mg PO QID PRN (Reason: pain) Qty: 30 0RF ibuprofen 600 mg tablet 600 mg PO Q6H PRN (Reason: pain) Qty: 30 0RF amoxicillin 500 mg tablet 500 mg PO BID 10 Days Qty: 20 0RF Stand Alone Forms: Work/School Release Print Language: Divehi
[2025-01-09] MEDS: Acetaminophen 325 MG TABLET 975 MG PO (10:06)
[2025-01-09] MEDS: Ondansetron ODT 4 MG TAB.RAPDIS TRANSLINGU (10:06)
--- OUTSIDE RECORDS SUMMARY | 2025-01-09 10:32 | XMS_ITS | Clinical Summary ---
Author Organization [employer] [facility] Address [address] [place] [address] Care Team Providers Care Electrical Prospecting Supervisor Name Role Phone Harish Newman MD Primary Care Prov ider Allergies No known active allergies Medications Hospital, Clinic, or Other Facility Administered Medication Ordered Dose Route Frequency Start Date End Date Status doxycycline (Vibramycin) capsule 100 mgIndications:STI (sexually transmitted infection) 100 mg PO 2 times daily 08/09/2024 Active Active Problems Problem Noted Date Diagnosed Date Encounter for medical examination to establish c are 12/24/2024 Assessment & Plan (12/24/2024 10:11 AM EDT): Last pcp visit 10 years ER visit: viral syndrome 12/20 [place] Hospitalization:- Pmhx:- Pshx: Tubal ligation 2010 All:- Meds: - Menarche: 10yrs LMP: 12/12/24 A0 Encounters Date Type Department Care Team Description 12/24/2024 9:45 AM EDT Telemedicine [facility] [address] [place] [address] Harish Newman MD Encounter for medical examination to establish care (Primary Dx) 12/24/2024 Travel 12/20/2024 Travel 12/18/2024 Population Health Risk Score [facility] ([facility]) Department [address] [id number] Provider, Population Health Generic 11/26/2024 Telephone [facility] [address] [place] [address] Harish Newman MD No Show 11/26/2024 Telephone [facility] [address] [place] [address] Harish Newman MD 11/26/2024 Travel 11/25/2024 Telephone [facility] [address] [place] [address] Harish Newman MD chart prep from Last 3 Months Family History Medical History Relation Name Comments No Known Problems Father Seizures Mother Cancer Neg Hx Relation Name Status Comments Father Mother Social History Tobacco Use Types Packs/Day Years Used Date Smoking Tobacco: Never Smokeless Tobacco: Never Tobacco Cessation:Counseling Given: Not Answered Alcohol Use Standard Drinks/Week Comments Yes 0 (1 standard drink = 0.6 oz pur e alcohol) social hard liquor Comments Unknown Sex and Gender Information Value Date Recorded Sex Assigned at Female 08/09/2024 11:42 AM EST Legal Sex Female 11:39 AM EST Gender Identity Female 08/09/2024 11:42 AM EST Sexual Orientation Straight 08/09/2024 11 :42 AM EST Plan of Treatment Upcoming Encounters Date Type Department Care Team (Late st Contact Info) Description 03/31/2025 4:00 PM EDT Office Visit [facility] [address] [place] [address] Harish Newman MD [address] [place] [address] Health Maintenance Due Date Last Done Comments Depression Screening 1991 HIV Screening 1991 SDOH Screening 1991 Alcohol/Substance Use Screening 2003 Family Planning (PISQ) 2006 Hepatitis C Screening 2009 DTaP/Tdap/Td Vaccines (1 - Tdap) 2010 Hepatitis B Vaccines (1 of 3 - 19+ 3-dose series) 2010 Pap Smear 2012 Cervical Cancer Screening 2021 HPV/Cotest 2021 COVID-19 Vaccine (1 - 2023-2 5 season) 2024 Influenza Vaccine (#1) 2024 Tobacco Screening 12/24/2025 12/24/2024 Zoster Vaccines (1 of 2) 2041 RSV Patients and Pa tients Aged 60 years or older (1 - 1-dose 75+ series) 2066 HIB Vaccines Aged Out No longer eligi ble based on patient's age to complete this topic HPV Vaccines Aged Out No longer eligi ble based on patient's age to complete this topic Hepatitis A Vaccines Aged Out No long er eligible based on patient's age to complete this topic IPV Vaccines Aged Out No longer eligi ble based on patient's age to complete this topic Meningococcal Vaccine Aged Out No tho chucho eligible based on patient's age to complete this topic Pneumococcal Vaccine: Pediat rics (0 to 5 Years) and At-Risk Patients (6 to 49) Years) Aged Out No longer elig ible based on patient's age to complete this topic RSV under 20 months Aged Out No longe r eligible based on patient's age to complete this topic Rotavirus Vaccines Aged Out No longer eligible based on patient's age to complete this topic [place] [address] C3 Care Teams Electrical Prospecting Supervisor Relationship Specialty Start Date End Date Harish Newman MD [address] [place] [id number] PCP - General Internal Medicine 12/25/24
[2025-01-09 10:47] VITALS: BP 131/77; PULSE 82; RESP 16; TEMP 36.4; O2SAT 98
== END 2025-01-09 10:48 | disposition home or self-care (01) ==
PROVIDERS: Emergency Provider Emergency Medicine; PCP Internal Medicine
DX: B34.9 Viral infection, unspecified (principal); J02.9 Acute pharyngitis, unspecified; R51.9 Headache, unspecified; Z03.818 Encounter for observation for suspected exposure to other biological agents ruled out
CPT/HCPCS: 0241U; 36415; 80053; 85025; 99283; 99284

== ENCOUNTER 2025-04-01 09:38 | Outpatient (REF) | payer MEDICAID, SELFPAY ==
--- OUTSIDE RECORDS SUMMARY | 2025-04-01 10:12 | XMS_ITS ---
Author Organization [employer] Address [address] [place] [address] Care Team Providers Care Human Resources Consultant Name Role Phone Harish Newman MD Primary Care Prov ider CM Complex Status:Enrolled (Active) Start date:01/10/2025 Enrollment date:02/04/2025 Enrollment reason:ADT Feed Overview ED- [place] [facility] [place]. Case Team Name Relationship Phone Eli Nugent RN(Responsible Staff) Registered Nurse [phone] Continued Care and Services Coordination
[2025-04-01 15:20] LABS: MANUAL DIFF FLAG NO
[2025-04-01 15:28] LABS: Hematocrit 43.0 % (37.0-47.0); Hemoglobin 14.0 g/dl (12.0-16.0); Imm Gran Abs Auto 0.01 X10*3/uL (0.00-0.03); Imm Gran Pct Auto 0.2 % (0.0-0.4); Lymphocytes Absolute Auto 2.4 X10*3/uL (1.2-4.9); Mean Corpuscular HGB Conc 32.6 g/dl (31.0-35.0); Mean Corpuscular Hemoglobin 30.8 pg (27.0-33.0); Mean Corpuscular Volume 94.7 fL (80.0-98.0); NRBC Abs Auto 0.000 X10*3/uL (0.0-0.012); NRBC Pct Auto 0.0 /100WBC (0.0-0.2); Platelet Count 253 X10*3/uL (160-400); Red Blood Count 4.54 X10*6/uL (4.20-5.50); White Blood Count 6.7 X10*3/uL (4.8-10.8)
[2025-04-01 15:48] LABS: Hemoglobin A1C 122.4530 umol/L; Total Hemoglobin (HGBA1C) 3617.0002 umol/L
[2025-04-01 15:52] LABS: Alanine Aminotransferase 23 U/L (0-31); Albumin Level 4.2 g/dL (3.5-5.0); Alkaline Phosphatase 47 U/L (39-117); Anion Gap 10 (12-20); Aspartate Amino Transferase 28 U/L (5-31); Blood Urea Nitrogen 13 mg/dL (9-16); Calcium 8.8 mg/dL (8.4-10.2); Carbon Dioxide 25 mmol/L (22-29); Chloride 107 mmol/L (96-108); Cholesterol 176 mg/dL (<200); Estimated Glomerular Filt Rate > 60; HDL Cholesterol 38 mg/dL (>40); Potassium 4.1 mmol/L (3.3-5.1); Sodium 138 mmol/L (135-145); Total Protein 7.2 g/dL (6.5-8.0); Triglycerides 94 mg/dL (<150)
[2025-04-02 03:39] LABS: HIV Num 1 0.06 S/CO (0.00-0.99); ~HepC Num1 1.34 S/CO (0.00-0.79); ~Hepatitis C Antibody Reactive (Nonreactive)
[2025-04-03 15:44] LABS: HCV Log PCR <1.18 NOT DETECTED Log IU/mL (NOT DETECTED); HepC Viral Load <15 NOT DETECTED IU/mL (NOT DETECTED)
== END 2025-04-01 09:39 | disposition home or self-care (01) ==
LOC: HO.CHCLDS 09:38
PROVIDERS: Visit Provider Internal Medicine
DX: E66.811 Obesity, class 1 (principal); E66.09 Other obesity due to excess calories; Z68.33 Body mass index [BMI] 33.0-33.9, adult
CPT/HCPCS: 36415; 80053; 80061; 83036; 84443; 85025; 86803; 87389; 87522

== ENCOUNTER 2025-04-08 14:53 | Outpatient (REF) | payer MEDICAID, SELFPAY ==
--- OUTSIDE RECORDS SUMMARY | 2014-10-28 06:24 | XMS_ITS | Continuity of Care Document ---
Author Organization [facility] Address [address] [place] [address] Phone Care Team Providers Care Beater Boss Name Role Phone Nohelia Michelle Unavailable Unavailable Medications Medication Instructions Dosage Effective Dates (start - stop) Status Comments 27 mg-0.8 mg tablet take 1 tablet by oral route every day - Active Please give n any equivalent vitamin that is covered by her insurance. Vol-Plus 27 mg-1 mg tablet take 1 tablet by oral route every day - Active Procedures Procedure Date HIV-1/HIV-2 With Reflex To Western Blot URINALYSIS NONAUTO W/O SCOPE Urine test Office/outpatient visit,est, mod 2013 Infct antign, chlamydia trac, ampl Infct antign, neisseria sabrian, ampl Cult, bactr, ident isolate, urine Antibody, HIV-1 Obstetric profile Antibody, varicella-zoster Assay hemoglobin, chromatography 2013 Specimen handling/transport Venpnctr fngr/heel/ear stick routne Office/outpatient visit,est, low 2008 Preventive checkup, est,18-39 yrs Urine test Urinalysis, non-automated, w/scope Venpnctr fngr/heel/ear stick routne Preventive checkup, new,12-17 yrs Urinalysis Advance Directives Directive Yes / No Effective Date File Name No Information Encounters Encounter Description Practice Location Reason(s) For Visit Diagnoses Date Provider Providers Copied on Encounter [facility], [address] [place] [address], [id number], tel:[phone] [facility] No Information 5 Miguel Angel Pozo. [address] [place], [place], [id number], [place]. tel:[phone] Office/outpa tient visit,est, [facility], [address] [place] [address], [id number], [place] tel:[phone] [facility] test (chief complaint) amenorrhea (chief complaint) TEST POSITIVESCRN OT SPCF VIRAL DISABDOMEN/PE LVIS SYMP NECBMI 26.0-26.9,JORJE LT 0 4 Miguel Angel Pozo. [address] [place], [place], [id number], [place]. tel:[phone] Office/outpa tient visit,est, [facility], [address] [place] [address], [id number], [place] tel:[phone] [facility] lab results (chief complaint) LABORATORY EXAMINATIONCO NSLN OT SEX TRNT DIS Sep-1 8-200 9 [facility] [place], [place], [id number], [place]. 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 [place], [place], [id number], [place]. tel:[phone] Preventive checkup, new,12-17 yrs [facility], [address] [place], [id number], [place] tel:[phone] [facility] well visit (chief complaint) MED EXAM NEC-ADMIN PURPCONSLN OT SEX TRNSMT DISCOUNSLNG SBSTN USE ABUSE Sep-0 2-200 9 [facility] [place], [place], [id number], [place]. tel:[phone] Family History Family Member Type Diagnosis Age At Onset Problem (finding) Family history of Diabe rodney mellitus Problem (finding) Family history of hyper tension Payers Payer name Insurance type Covered libertarian ID Authoriza tion(s) No Information Social History Type Description Quantity Date Captured Comments Sex Female Smoking Status No Information Sexual Orientation Straight or heterosexual Chief Complaint And Reason For Visit No Information Reason For Referral Reason For Referral No Information Plan Of Treatment Date Type Action Status Goal Tobacco cessation counseling completed History Of Present Illness Encounter Date Complaint History Of Prese nt Illness No Information Functional Status Date Functional Assessmen t No Information Instructions Date Instruction Additional Infor mation No Information Assessments Type Assessment Date No Information Patient Care Teams Name Effective Dates (start - stop) Status Members No Information
--- OUTSIDE RECORDS SUMMARY | 2025-04-08 09:20 | XMS_ITS | Encounter Summary ---
Author Organization [employer] Address [address] [facility] [address] [place] [address] Care Team Providers Care Manager Life Insurance Name Role Phone Harish Newman MD Primary Care Prov ider Reason for Visit * Reason Comments Cervical Cancer Screening Encounter Details Date Type Department Care Team (Latest Contact Info) Description 04/08/2025 9:20 AM EDT Procedure Visit [facility] [address], [place] [phone] Elsie Doherty MD [address] [place], [place] [phone] Cervical cancer screening (Primary Dx); Encounter for immunization Social History Tobacco Use Types Packs/Day Years Used Date Smoking Tobacco: Never Smokeless Tobacco: Never Alcohol Use Standard Drinks/Week Comments Yes 0 (1 standard drink = 0.6 oz pur e alcohol) social hard liquor Depression Answer Date Recorded Patient Health Questionnaire-9 Score 0 02/04/2025 Patient Health Questionnaire-9 Score 0 02/04/2025 Last PHQ-9: Questionnaire Data Not on file 0 02/04/2025 Housing Stability Answer Date Recorded What is your housing situation today? I have myron maxwell 03/26/[address] you li ve. Do you have problems with any of the following? None of the above 03/26/2025 Food Insecurity Answer Date Recorded Within the past 12 months, y ou worried that your food would run out before you got money to buy more: Never True 03/26/2025 Within the past 12 months,th e food you bought just didn't last and you didn't have enough money to get more: Never True 10/2024 Transportation Answer Date Recorded In the past 12 months, has l ack of transportation kept you from medical appts, meetings, work or from getting things needed for daily living? No 03/26/2025 Utilities Answer Date Recorded In the past 12 months, has t he electric, gas, oil or water company threatened to shut off services in your home? No 03/26/2025 Depression Answer Date Recorded Patient Health Questionnaire-2 Score 0 02/04/2025 Internet Access Answer Date Recorded Internet Access Q1 Yes 03/26/2025 Internet Access Q2 Not on file 03/26/2025 Comments Unknown Sex and Gender Information Value Date Recorded Sex Assigned at Female 08/09/2024 11:42 AM EST Legal Sex Female 11:39 AM EST Gender Identity Female 08/09/2024 11:42 AM EST Sexual Orientation Straight 08/09/2024 11 :42 AM EST documented as of this encounter Last Filed Vital Signs Vital Sign Reading Time Taken Comments Blood Pressure 130/86 04/08/2025 9:10 AM EDT Pulse 74 04/08/2025 9:10 AM EDT Temperature 36.4 C (97.6 F) 04/08/2025 9:10 AM EDT Respiratory Rate 20 04/08/2025 9:10 AM EDT Oxygen Saturation 98% 04/08/2025 9:10 AM EDT Inhaled Oxygen Concentration - - Weight 81.4 kg (179 lb 8 oz) 04/08/2025 9:10 AM EDT Height 159 cm (5' 2.6 ) 04/08/2025 9:10 AM EDT Body Mass Index 32.21 04/08/2025 9:10 AM EDT documented in this encounter Progress Notes * Elsie Doherty MD - 04/08/2025 9:20 AM EDT Subjective Patient ID: Gretchen Duckworth is a 34 y.o. female who presents for Cervical Cancer Screening. 34 y.o. female here for annual well woman preventive exam. LMP: Patient's last menstrual period was 03/12/2025 (exact date). Sexual activity: Social History Substance and Sexual Activity Sexual activity: Yes Partners: Male control/protection: Female Sterilization intention: BC method: Smoking hx: Tobacco Use: Low Risk (04/08/2025) Tobacco Smoking Tobacco Use: Never Smokeless Tobacco Use: Never Passive Exposure: Not on file Alcohol use hx: Social History Substance and Sexual Activity Alcohol use: Yes Comment: social hard liquor OBHx: # 1 - Date: None, Sex: None, Weight: None, GA: None, Type: None, Apgar1: None, Apgar5: None, Living: None, Comments: None # 2 - Date: None, Sex: None, Weight: None, GA: None, Type: None, Apgar1: None, Apgar5: None, Living: None, Comments: None IPV: Denies IPV Reviewed family hx Review of patient's family history indicates: Problem: Seizures Relation: Mother Name: Age of Onset: (Not Specified) Problem: No Known Problems Relation: Father Name: Age of Onset: (Not Specified) Problem: Cancer Relation: Neg Hx Name: Age of Onset: (Not Specified) Health Maintenance: No results found for: HMPAP , HMMAMMO , HMCOLON Review of Systems Constitutional: Negative for appetite change, fatigue and fever. HENT: Negative for congestion, postnasal drip and rhinorrhea. Eyes: Negative for discharge and redness. Respiratory: Negative for apnea, cough, chest tightness and shortness of breath. Cardiovascular: Negative for chest pain. Gastrointestinal: Negative for abdominal pain. Endocrine: Negative for polyphagia. Genitourinary: Negative for difficulty urinating, dysuria and urgency. Musculoskeletal: Negative for arthralgias. Neurological: Negative for dizziness, light-headedness, numbness and headaches. Hematological: Negative for adenopathy. Does not bruise/bleed easily. Objective Visit Vitals BP 130/86 (BP Location: Right arm, Patient Position: Sitting, BP Cuff Size: Large adult) Pulse 74 Temp 97.6 ??F (36.4 ??C) (Oral) Resp 20 Ht 5' 2.6 (1.59 m) Wt 179 lb 8 oz (81.4 kg) LMP 03/12/2025 (Exact Date) SpO2 98% BMI 32.21 kg/m?? Smoking Status Never BSA 1.9 m?? Physical Exam Vitals reviewed. Exam conducted with a resourcing consultant present. HENT: Head: Normocephalic and atraumatic. Pulmonary: Effort: Pulmonary effort is normal. Chest: Chest wall: No deformity, tenderness or crepitus. Breasts: Breasts are symmetrical. Right: Normal. No inverted nipple, mass, nipple discharge, skin change or tenderness. Left: Normal. No inverted nipple, mass, nipple discharge, skin change or tenderness. Genitourinary: Urethra: No prolapse. Vagina: Normal. Cervix: Normal. Rectum: Normal. Musculoskeletal: Cervical back: Normal range of motion. Lymphadenopathy: Upper Body: Right upper body: No supraclavicular, axillary or pectoral adenopathy. Left upper body: No supraclavicular, axillary or pectoral adenopathy. Psychiatric: Mood and Affect: Mood normal. Assessment/Plan Problem List Items Addressed This Visit Cervical cancer screening - Primary 34 y.o. here for cervical cancer screening. Will continue monitoring following ASCCP guidelines. Relevant Orders HPV High Risk with Reflex to Subtypes Pap Smear Other Visit Diagnoses Encounter for immunization Relevant Medications valACYclovir (Valtrex) 1 g tablet Other Relevant Orders TDAP VACCINE 7 yrs + (Completed) documented in this encounter Miscellaneous Notes * Assessment & Plan Note - Elsie Doherty MD - 04/08/2025 10:21 AM EDT Associated Problem(s): Cervical cancer screening 34 y.o. here for cervical cancer screening. Will continue monitoring following ASCCP guidelines. documented in this encounter Plan of Treatment Scheduled Orders Name Type Priority Associated Diagnoses Orde r Schedule HPV High Risk with Reflex to Subtypes Lab Routine Cervical cancer screening Ordered: 04/08/2025 Pap Smear Pathology and Cytology Routine Cervical cancer screening Ordered: 04/08/2025 documented as of this encounter Visit Diagnoses Diagnosis Cervical cancer screening- Primary Screening for malignant neoplasm of the cervix Encounter for immunization documented in this encounter Additional Health Concerns Assessment Noted Time PHQ-9 Depression Total Score: 0 02/05/20 1:58 PM EDT documented as of this encounter Care Teams Manager Life Insurance Relationship Specialty Start Date End Date Harish Newman MD [address] [place] [id number] PCP - General Internal Medicine 12/25/24 documented as of this encounter
== END 2025-04-08 14:54 | disposition home or self-care (01) ==
LOC: HO.CHCLNP 14:53
PROVIDERS: Visit Provider Family Medicine
DX: Z12.4 Encounter for screening for malignant neoplasm of cervix (principal)
CPT/HCPCS: 87626; 88175

== ENCOUNTER 2025-04-09 21:01 | Emergency (ER) | payer MEDICAID, SELFPAY ==
[2025-04-09 21:02] VITALS: BP 130/84; PULSE 111; RESP 16; TEMP 37.2; O2SAT 97; BMI 33.4
[2025-04-09 21:34] LABS: MANUAL DIFF FLAG NO
[2025-04-09 21:36] LABS: Hematocrit 37.2 % (37.0-47.0); Hemoglobin 13.0 g/dl (12.0-16.0); Imm Gran Abs Auto 0.01 X10*3/uL (0.00-0.03); Imm Gran Pct Auto 0.1 % (0.0-0.4); Lymphocytes Absolute Auto 1.5 X10*3/uL (1.2-4.9); Mean Corpuscular HGB Conc 34.9 g/dl (31.0-35.0); Mean Corpuscular Hemoglobin 31.9 pg (27.0-33.0); Mean Corpuscular Volume 91.2 fL (80.0-98.0); NRBC Abs Auto 0.000 X10*3/uL (0.0-0.012); NRBC Pct Auto 0.0 /100WBC (0.0-0.2); Platelet Count 250 X10*3/uL (160-400); Red Blood Count 4.08 X10*6/uL (4.20-5.50); White Blood Count 7.3 X10*3/uL (4.8-10.8)
[2025-04-09 21:49] LABS: Anion Gap 14 (12-20); Blood Urea Nitrogen 10 mg/dL (9-16); Calcium 9.0 mg/dL (8.4-10.2); Carbon Dioxide 21 mmol/L (22-29); Chloride 107 mmol/L (96-108); Creatinine Clr Calc Pharmacy 97.1; Estimated Glomerular Filt Rate > 60; Potassium 3.1 mmol/L (3.3-5.1); Sodium 139 mmol/L (135-145)
[2025-04-09 22:13] LABS: Resp Syncy Virus RNA Qual PCR NEGATIVE (Negative); SARS COV2 PCR INHOUSE POSITIVE (Negative)
[2025-04-09 22:47] LABS: IDNOW Serial# 6674DD1D; Strep A Nucleic Acid Positive (Negative)
[2025-04-10 03:47] VITALS: BP 111/70; PULSE 69; RESP 18; TEMP 36.7; O2SAT 99
--- NOTE | 2025-04-10 04:07 | ED.FEVER ---
HPI - Fever General Chief Complaint: Fever Stated Complaint: fever Time Seen by Provider: 04/10/25 04:00 Source: patient Mode of arrival: ambulatory Limitations: no limitations History of Present Illness ED Provider: Dr. Nancy Thibodeaux HPI Narrative: Patient comes to the emergency room complaining of sore throat, fever, chills for couple of days. Patient states that yesterday she had her tetanus shot booster and hours later she started feeling feverish and unwell. Patient complaining of sore throat, no chest pain or shortness of breath. Patient states that overall she has muscle kind of pain all over her body. Related Data Previous Rx's ?Medication ?Instructions ?Recorded amoxicillin 500 mg capsule 500 mg PO BID 10 days #20 caps 08/01/21 cetirizine 10 mg capsule 10 mg PO DAILY PRN allergy 08/01/21 symptoms #30 caps azithromycin 250 mg tablet See Rx Instructions PO .COMPLEX #6 09/08/21 (Zithromax Z-Shin) tabs ondansetron 4 mg disintegrating 4 mg PO Q8H PRN nausea and 09/08/21 tablet vomiting #5 tabs prednisone 20 mg tablet 40 mg (2 x 20 mg) PO DAILY #10 tabs 09/08/21 nitrofurantoin 100 mg PO Q12H 5 days #10 caps 12/17/21 monohydrate/macrocrystals 100 mg capsule (Macrobid) phenazopyridine 100 mg tablet 100 mg PO TID 6 doses #6 tabs 12/20/21 sulfamethoxazole 800 1 tab PO BID #6 tabs 12/20/21 mg-trimethoprim 160 mg tablet (Bactrim DS) doxycycline monohydrate 100 mg 100 mg PO BID 10 days #20 tabs 12/13/22 tablet valacyclovir 1 gram tablet 1,000 mg PO BID Oral herpes 12/13/22 (Valtrex) simplex 10 days #20 tabs acetaminophen 650 mg 650 mg PO Q8H PRN pain #30 tabs 03/27/23 tablet,extended release (Tylenol 8 Hour) amoxicillin 500 mg capsule 500 mg PO BID 10 days #20 caps 03/27/23 ibuprofen 600 mg tablet 600 mg PO Q6H PRN pain #30 tabs 03/27/23 benzocaine 15 mg-menthol 2.6 mg 1 toi mucous membrane Q2-4H PRN 05/14/24 lozenges (Cepacol Sore Throat sore throat #16 ea (benzocaine-menthol)) prednisone 20 mg tablet 20 mg PO DAILY 4 days #4 tabs 05/14/24 acetaminophen 500 mg tablet 500 - 1,000 mg (1 - 2 x 500 mg) PO 06/15/24 (Tylenol Extra Strength) QID PRN pain #30 tabs amoxicillin 500 mg tablet 500 mg PO BID 10 days #20 tabs 06/15/24 ibuprofen 600 mg tablet 600 mg PO Q6H PRN pain #30 tabs 06/15/24 amoxicillin 500 mg capsule 500 mg PO BID #20 caps 12/20/24 valacyclovir 1 gram tablet 1,000 mg PO BID #14 tabs 12/20/24 ondansetron 4 mg disintegrating 4 mg PO Q8H PRN nausea and 01/09/25 tablet vomiting #20 tabs amoxicillin 500 mg capsule 500 mg PO TID 7 days #21 caps 04/10/25 ibuprofen 600 mg tablet 600 mg PO Q8H PRN fever or pain 04/10/25 #30 tabs Allergies Allergy/AdvReac Type Severity Reaction Status Date / Time No Known Allergies (No Known Allergy Verified 04/09/25 21:07 Allergies*) Review of Systems Review of Systems: Constitutional : No Weight loss, complaining of fever, chills, fatigue and generalized malaise ENT/Mouth : No Hearing loss, No Ear Pain, No Nasal Congestion, No Sinus Pain, No Hoarseness, complaining of sore throat, No Rhinorrhea, No Swallowing Difficulty Eyes: No Eye Pain, No Swelling, No Redness, No Foreign Body, No Discharge, No Vision Changes Cardiovascular : No Chest Pain, No SOB, No Dyspnea on Exertion, No Orthopnea, No Edema, No Palpitations Respiratory : No Cough, No Sputum, No Wheezing, No Smoke Exposure, No Dyspnea Gastrointestinal : No Nausea, No Vomiting, No Diarrhea, No Constipation, No abdominal Pain, No Hematochezia, No Melena Genitourinary : no irregular bleeding, No Dysuria, No Urinary Frequency, No Hematuria, No Urinary Incontinence, No Urgency, No Flank Pain, No Urinary Flow Changes, No Hesitancy Musculoskeletal : No joint pain, complaining of diffuse Myalgias, No Joint Swelling Skin : No Skin Lesions, No rash Neuro : No Weakness, No Numbness, No Paresthesias, No Loss of Consciousness, No Dizziness, No Headache Psych : No Anxiety/Panic, No Depression, No SI/HI/AH/VH, No Social Issues, Heme/Lymph: No Bruising, No Bleeding,No Lymphadenopathy Endocrine : No Polyuria, No Polydipsia, No Temperature Intolerance [facility] Past Medical History Medical History No known health problems Social History Social History (System 04/02/25 @ 12:18 by 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 Oriented X3. No acute distress. Eyes: Pupils equal, round and reactive to light. ENT: Pharynx erythematous, no obvious exudates, no patient realized abscesses, normal palatine tonsils, uvula midline Neck: Normal inspection. Neck supple. No lymph nodes noted. No crepitus CVS: Normal heart rate and rhythm. Pulses normal. Normal S1 and S2 Respiratory: No respiratory distress. Breath sounds normal. No Wheezing. No rales Abdomen: Soft and nontender. No rigidity. No distention. Skin: Skin warm and dry. Normal skin color. Normal skin turgor. Extremities: No lower extremity edema. No Lacerations. No Rash Neuro: Oriented X 3. No motor deficit. No sensory deficit. Moving all extremities. No slurred speech. CN 2 through 12 grossly intact Psych: calm, cooperative, normal affect Course Course Course Narrative: Patient comes in complaining of generalized malaise after her tetanus shot. Patient complaining of fever and chills. Medical Decision Making Medical Decision Making [facility] Narrative: I discussed the labs with the patient, no significant abnormality in patient's hematology, chemistry shows a slightly decreased potassium which was repleted p.o.. Serology positive for both COVID and strep. I discussed the above-mentioned with the patient, she will need antibiotics for strep. Differential Diagnosis Differential Diagnoses: The differential diagnosis associated with the presentation includes (As above) Lab Data MDM Lab Attestation statement: I reviewed the patient's lab results. 04/09/25 21:27 04/09/25 21:27 Labs: Lab Results 04/09/25 Range/Units 21:27 WBC 7.3 (4.8-10.8) X10*3/uL RBC 4.08 L (4.20-5.50) X10*6/uL Hgb 13.0 (12.0-16.0) g/dl Hct 37.2 (37.0-47.0) % MCV 91.2 (80.0-98.0) fL MCH 31.9 (27.0-33.0) pg MCHC 34.9 (31.0-35.0) g/dl RDW 12.5 (11.0-16.0) % Plt Count 250 (160-400) X10*3/uL MPV 9.9 (9.4-12.3) fL Immature Gran % (Auto) 0.1 (0.0-0.4) % Neut % (Auto) 55.8 (45-73) % Lymph % (Auto) 19.9 L (20-40) % Stanly % (Auto) 19.2 H (2-11) % Eos % (Auto) 4.6 H (0-4) % Baso % (Auto) 0.4 (0-2) % Lymph # (Auto) 1.5 (1.2-4.9) X10*3/uL Stanly # (Auto) 1.4 H (0.1-1.2) X10*3/uL Eos # (Auto) 0.3 (0.0-0.4) X10*3/uL Baso # (Auto) 0.0 (0.0-0.2) X10*3/uL Abs Immat Gran (auto) 0.01 (0.00-0.03) X10*3/uL Absolute Neuts (auto) 4.1 (2.0-8.3) x10*3/uL Absolute Nucleated RBC 0.000 (0.0-0.012) X10*3/uL Nucleated RBC % (auto) 0.0 (0.0-0.2) /100WBC Sodium 139 (135-145) mmol/L Potassium 3.1 L D (3.3-5.1) mmol/L Chloride 107 (96-108) mmol/L Carbon Dioxide 21 L (22-29) mmol/L Anion Gap 14 (12-20) BUN 10 (9-16) mg/dL Creatinine 0.79 (0.5-1.4) mg/dL Estim Creat Clear Calc 97.1 Estimated GFR > 60 Random Glucose 102 (60-115) mg/dL Calcium 9.0 (8.4-10.2) mg/dL Influenza Type A (PCR) NEGATIVE (Negative) Influenza Type B (PCR) NEGATIVE (Negative) RSV RNA Qual (PCR) NEGATIVE (Negative) SARS-CoV-2 RNA (RT-PCR) POSITIVE A (Negative) S. pyogenes GrpA DOMINIC Positive A (Negative) Discharge Plan Discharge Clinical Impression: Acute hypokalemia, Acute streptococcal pharyngitis, COVID-19 Patient Disposition: Home, Self-Care Instructions: Strep Throat (ED), Potassium Content of Foods List (ED), Hypokalemia (ED), COVID-19 (Coronavirus Disease 2019) (ED) Additional Instructions: Please make sure that in a proximally 5 days you get a new toothbrush to avoid infecting yourself with strep. Make sure that you finish the entire course of antibiotics even if you feel well. Please follow-up with your primary care physician tomorrow. If you have any worsening or new symptoms, please return to the emergency room or call 911 Prescriptions: New amoxicillin 500 mg capsule 500 mg PO TID 7 Days Qty: 21 0RF ibuprofen 600 mg tablet 600 mg PO Q8H PRN (Reason: fever or pain) Qty: 30 0RF No Action cetirizine 10 mg capsule 10 mg PO DAILY PRN (Reason: allergy symptoms) Qty: 30 2RF amoxicillin 500 mg capsule 500 mg PO BID 10 Days Qty: 20 0RF sulfamethoxazole-trimethoprim [Bactrim DS] 800-160 mg tablet 1 tab PO BID Qty: 6 0RF phenazopyridine 100 mg tablet 100 mg PO TID Qty: 6 0RF valacyclovir [Valtrex] 1 gram tablet 1,000 mg PO BID 10 Days Qty: 20 3RF doxycycline monohydrate 100 mg tablet 100 mg PO BID 10 Days Qty: 20 0RF azithromycin [Zithromax Z-Shin] 250 mg tablet See Rx Instructions .ROUTE .COMPLEX Qty: 6 0RF Rx Instructions: take 500 mg today (day 1), then 250 mg for 4 days (days 2-5) prednisone 20 mg tablet 40 mg PO DAILY Qty: 10 0RF ondansetron 4 mg tablet,disintegrating 4 mg PO Q8H PRN (Reason: nausea and vomiting) Qty: 5 0RF nitrofurantoin monohyd/m-cryst [Macrobid] 100 mg capsule 100 mg PO Q12H 5 Days Qty: 10 0RF Rx Instructions: must administer with a meal/food amoxicillin 500 mg capsule 500 mg PO BID 10 Days Qty: 20 0RF ibuprofen 600 mg tablet 600 mg PO Q6H PRN (Reason: pain) Qty: 30 0RF acetaminophen [Tylenol 8 Hour] 650 mg tablet extended release 650 mg PO Q8H PRN (Reason: pain) Qty: 30 0RF Cepacol Sore Throat (charlene-men) 15-2.6 mg lozenge 1 toi mucous membrane Q2-4H PRN (Reason: sore throat) Qty: 16 0RF prednisone 20 mg tablet 20 mg PO DAILY 4 Days Qty: 4 0RF amoxicillin 500 mg capsule 500 mg PO BID Qty: 20 0RF valacyclovir 1 gram tablet 1,000 mg PO BID Qty: 14 0RF ondansetron 4 mg tablet,disintegrating 4 mg PO Q8H PRN (Reason: nausea and vomiting) Qty: 20 0RF acetaminophen [Tylenol Extra Strength] 500 mg tablet 500 - 1,000 mg PO QID PRN (Reason: pain) Qty: 30 0RF ibuprofen 600 mg tablet 600 mg PO Q6H PRN (Reason: pain) Qty: 30 0RF amoxicillin 500 mg tablet 500 mg PO BID 10 Days Qty: 20 0RF Stand Alone Forms: Work/School Release Print Language: Frisian
[2025-04-10] MEDS: Potassium Chloride Packet 20 MEQ PACKET 40 MEQ PO (04:16)
[2025-04-10 04:29] VITALS: BP 111/70; PULSE 69; RESP 18; TEMP 36.7; O2SAT 99
== END 2025-04-10 04:34 | disposition home or self-care (01) ==
PROVIDERS: Emergency Provider Emergency Medicine
DX: U07.1 COVID-19 (principal); J02.0 Streptococcal pharyngitis; E87.6 Hypokalemia; R50.9 Fever, unspecified; J02.9 Acute pharyngitis, unspecified
CPT/HCPCS: 80048; 85025; 87637; 87651; 99283